=== PATIENT | male | born 1950 | race Caucasian/White ===

== ENCOUNTER 2016-10-03 16:45 | Inpatient (IN) | payer MEDICARE ==
[2016-10-03] MEDS ORDERED: PANTOPRAZOLE 40 MG/10 ML VIAL IVP STA (17:18)
[2016-10-03] MEDS ORDERED: IOHEXOL 350 MG/ML 25 ML BOTTLE (ORAL USE) PO PRN (17:18)
[2016-10-03] MEDS ORDERED: RX INFO: IV CONTRAST WAS GIVEN 1 EACH MISC MISCELLANE PRN (17:18)
[2016-10-03] MEDS ORDERED: SODIUM CHLORIDE 0.9% 1,000 ML IV STA (17:18)
[2016-10-03] MEDS ORDERED: HYDROmorphone 1 MG/ML 1 ML SYRINGE IVP STA (17:18)
--- NOTE | 2016-10-03 17:22 | ED ---
General Adult HPI - General Chief complaint: Abdominal Pain Stated complaint: Abdominal pain Time Seen by Provider: 10/03/16 17:04 Source: patient, RN notes reviewed Mode of arrival: EMS Limitations: no limitations - History of Present Illness Initial comments: Patient is a pleasant 65-year-old male presenting to the emergency Department with abdominal discomfort. Onset was last night after eating pizza. Patient had a friend who ate pizza with similar problems. Patient did have a few episodes of diarrhea. Patient had some nausea however that is improved. No vomiting. Patient originally stated he had some chest discomfort however admits his discomfort is all in the abdominal/epigastric region during history and physical. No back pain. Patient does have lap band that has been present for several years. - Related Data Home Medications Medication Instructions Recorded Confirmed Acetaminophen [Tylenol] 650 mg PO Q4H PRN 10/03/16 10/03/16 Bismuth Subsalicylate 15 mg PO DAILY PRN 10/03/16 10/03/16 [Pepto-Bismol] Ibuprofen [Advil] 400 mg PO Q8HR PRN 10/03/16 10/03/16 Allergies Allergy/AdvReac Type Severity Reaction Status Date / Time No Known Allergies Allergy Verified 10/03/16 17:57 Review of Systems ROS Statement: Those systems with pertinent positive or pertinent negative responses have been documented in the HPI. ROS Other: All systems not noted in ROS Statement are negative. Constitutional: Denies: fever Eyes: Denies: eye pain ENT: Denies: ear pain Respiratory: Denies: cough Cardiovascular: Denies: chest pain Endocrine: Denies: fatigue Gastrointestinal: Reports: abdominal pain, nausea, diarrhea Genitourinary: Denies: urgency Musculoskeletal: Denies: back pain Skin: Denies: rash Past Medical History Past Medical History: Diabetes Mellitus, Hypertension History of Any Multi-Drug Resistant Organisms: None Reported Past Surgical History: Bariatric Surgery Additional Past Surgical History / Comment(s): lap band Past Psychological History: No Psychological Hx Reported Smoking Status: Never smoker Past Alcohol Use History: None Reported Past Drug Use History: None Reported General Exam Limitations: no limitations General appearance: alert, in no apparent distress, obese Head exam: Present: atraumatic Eye exam: Present: normal appearance, PERRL ENT exam: Present: normal oropharynx Neck exam: Present: normal inspection Respiratory exam: Present: normal lung sounds bilaterally. Absent: chest wall tenderness Cardiovascular Exam: Present: regular rate, normal rhythm Expanded Peripheral pulses: 2+: Posterior Tibialis (R), Posterior Tibialis (L) GI/Abdominal exam: Present: soft, tenderness (Mild epigastric tenderness to palpation), normal bowel sounds. Absent: distended, guarding, rebound, rigid Extremities exam: Present: pedal edema (+1 bilateral). Absent: calf tenderness Neurological exam: Present: alert Psychiatric exam: Present: normal affect, normal mood Skin exam: Present: normal color Course Vital Signs 10/03/16 10/03/16 10/03/16 17:05 17:45 18:23 Temperature 99.0 F Pulse Rate 97 72 86 Respiratory 20 18 18 Rate Blood Pressure 198/84 162/73 179/73 O2 Sat by Pulse 95 95 95 Oximetry 10/03/16 19:18 Temperature 98.7 F Pulse Rate 84 Respiratory 18 Rate Blood Pressure 175/78 O2 Sat by Pulse 95 Oximetry EKG Findings - EKG Comments: EKG Findings:: Sinus rhythm at 88. First-degree AV block NH of 218. QRS 86. QT 344. QTC 416. Left axis. Normal QRS. Normal ST-T. Medical Decision Making - Medical Decision Making Patient reevaluated and resting comfortably in bed. Patient and family updated on results and plan. Patient denies alcohol use. Case discussed with Dr. Cooper , who will admit for Dr. Perez. Consult for Dr. Michael. Computed tomography scan has been ordered. - Lab Data Result diagrams: 10/03/16 17:44 10/03/16 17:44 Lab Results 10/03/16 10/03/16 10/03/16 Range/Units 17:44 17:44 17:44 WBC 12.3 H (3.8-10.6) k/uL RBC 5.07 (4.30-5.90) m/uL Hgb 16.0 (13.0-17.5) gm/dL Hct 45.9 (39.0-53.0) % MCV 90.5 (80.0-100.0) fL MCH 31.6 (25.0-35.0) pg MCHC 34.9 (31.0-37.0) g/dL RDW 12.8 (11.5-15.5) % Plt Count 181 (150-450) k/uL Neutrophils % 78 % Lymphocytes % 13 % Monocytes % 5 % Eosinophils % 2 % Basophils % 0 % Neutrophils # 9.6 H (1.3-7.7) k/uL Lymphocytes # 1.6 (1.0-4.8) k/uL Monocytes # 0.6 (0-1.0) k/uL Eosinophils # 0.3 (0-0.7) k/uL Basophils # 0.0 (0-0.2) k/uL PT (9.0-12.0) sec INR (<1.1) APTT (22.0-30.0) sec Sodium 136 L (137-145) mmol/L Potassium 4.3 (3.5-5.1) mmol/L Chloride 101 (98-107) mmol/L Carbon Dioxide 23 (22-30) mmol/L Anion Gap 12 mmol/L BUN 12 (9-20) mg/dL Creatinine 0.91 (0.66-1.25) mg/dL Est GFR (MDRD) Af Amer >60 (>60 ml/min/1.73 sqM) Est GFR (MDRD) Non-Af >60 (>60 ml/min/1.73 sqM) Glucose 172 H (74-99) mg/dL Calcium 9.7 (8.4-10.2) mg/dL Total Bilirubin 0.8 (0.2-1.3) mg/dL AST 29 (17-59) U/L ALT 31 (21-72) U/L Alkaline Phosphatase 83 (38-126) U/L Total Creatine Kinase 266 H (55-170) U/L CK-MB (CK-2) 1.0 (0.0-2.4) ng/mL CK-MB (CK-2) Rel Index 0.4 Troponin I <0.012 (0.000-0.034) ng/mL Total Protein 7.5 (6.3-8.2) g/dL Albumin 4.5 (3.5-5.0) g/dL Amylase 207 H (30-110) U/L Lipase 4610 H (23-300) U/L Urine Color Urine Appearance (Clear) Urine pH (5.0-8.0) Ur Specific [place] (1.001-1.035) Urine Protein (Negative) Urine Glucose (UA) (Negative) Urine Ketones (Negative) Urine Blood (Negative) Urine Nitrite (Negative) Urine Bilirubin (Negative) Urine Urobilinogen (<2.0) mg/dL Ur Leukocyte Esterase (Negative) Urine RBC (0-5) /hpf Urine WBC (0-5) /hpf Urine Bacteria (None) /hpf Urine Mucus (None) /hpf 10/03/16 10/03/16 Range/Units 17:44 17:44 WBC (3.8-10.6) k/uL RBC (4.30-5.90) m/uL Hgb (13.0-17.5) gm/dL Hct (39.0-53.0) % MCV (80.0-100.0) fL MCH (25.0-35.0) pg MCHC (31.0-37.0) g/dL RDW (11.5-15.5) % Plt Count (150-450) k/uL Neutrophils % % Lymphocytes % % Monocytes % % Eosinophils % % Basophils % % Neutrophils # (1.3-7.7) k/uL Lymphocytes # (1.0-4.8) k/uL Monocytes # (0-1.0) k/uL Eosinophils # (0-0.7) k/uL Basophils # (0-0.2) k/uL PT 10.6 (9.0-12.0) sec INR 1.1 (<1.1) APTT 23.8 (22.0-30.0) sec Sodium (137-145) mmol/L Potassium (3.5-5.1) mmol/L Chloride (98-107) mmol/L Carbon Dioxide (22-30) mmol/L Anion Gap mmol/L BUN (9-20) mg/dL Creatinine (0.66-1.25) mg/dL Est GFR (MDRD) Af Amer (>60 ml/min/1.73 sqM) Est GFR (MDRD) Non-Af (>60 ml/min/1.73 sqM) Glucose (74-99) mg/dL Calcium (8.4-10.2) mg/dL Total Bilirubin (0.2-1.3) mg/dL AST (17-59) U/L ALT (21-72) U/L Alkaline Phosphatase (38-126) U/L Total Creatine Kinase (55-170) U/L CK-MB (CK-2) (0.0-2.4) ng/mL CK-MB (CK-2) Rel Index Troponin I (0.000-0.034) ng/mL Total Protein (6.3-8.2) g/dL Albumin (3.5-5.0) g/dL Amylase (30-110) U/L Lipase (23-300) U/L Urine Color Light Yellow Urine Appearance Clear (Clear) Urine pH 5.0 (5.0-8.0) Ur Specific [place] 1.010 (1.001-1.035) Urine Protein Trace H (Negative) Urine Glucose (UA) 2+ H (Negative) Urine Ketones Negative (Negative) Urine Blood Trace H (Negative) Urine Nitrite Negative (Negative) Urine Bilirubin Negative (Negative) Urine Urobilinogen <2.0 (<2.0) mg/dL Ur Leukocyte Esterase Negative (Negative) Urine RBC <1 (0-5) /hpf Urine WBC <1 (0-5) /hpf Urine Bacteria Rare H (None) /hpf Urine Mucus Rare H (None) /hpf Disposition Clinical Impression: Acute pancreatitis Disposition: ADMITTED IP TO THIS [facility] Condition: Serious Referrals: Gilbert Perez MD [Primary Care Provider] - 1-2 days Time of Disposition: 19:28
[2016-10-03 18:06] LABS: Basophils % (A) 0 %; CH 32.2; CHCM 35.8; Eosinophils # (A) 0.3 k/uL (0-0.7); Eosinophils % (A) 2 %; HCT 45.9 % (39.0-53.0); HDW 2.93; Luc # (Auto) 0.17; Luc % (Auto) 1; Lymphocytes # (A) 1.6 k/uL (1.0-4.8); Lymphocytes % (A) 13 %; MCH 31.6 pg (25.0-35.0); MCHC 34.9 g/dL (31.0-37.0); MCV 90.5 fL (80.0-100.0); Mean Platelet Volume 7.1; Monocytes # (A) 0.6 k/uL (0-1.0); Monocytes % (A) 5 %; Neutrophils # (A) 9.6 k/uL (1.3-7.7); Neutrophils % (A) 78 %; RBC 5.07 m/uL (4.30-5.90); RDW 12.8 % (11.5-15.5); WBC 12.3 k/uL (3.8-10.6); WBC (Perox) 11.36
[2016-10-03 18:14] LABS: INR 1.1 (<1.1); Partial Thromboplastin Time 23.8 sec (22.0-30.0); Prothrombin Time 10.6 sec (9.0-12.0)
[2016-10-03 18:16] LABS: ALT 31 U/L (21-72); AST 29 U/L (17-59); Alkaline Phosphatase 83 U/L (38-126); Amylase 207 U/L (30-110); Anion Gap 12 mmol/L; Blood Urea Nitrogen 12 mg/dL (9-20); Calcium 9.7 mg/dL (8.4-10.2); Carbon Dioxide 23 mmol/L (22-30); Chloride 101 mmol/L (98-107); Glucose 172 mg/dL (74-99); Non-African American GFR(MDRD) >60 (>60 ml/min/1.73 sqM); Potassium 4.3 mmol/L (3.5-5.1); Sodium 136 mmol/L (137-145); Total Bilirubin 0.8 mg/dL (0.2-1.3); Total Protein 7.5 g/dL (6.3-8.2)
[2016-10-03 18:20] LABS: Appearance,Urine Clear (Clear); Bacteria,Urine Rare /hpf; Bilirubin,Urine Negative (Negative); Glucose,Urine (UA) 2+ (Negative); Ketones,Urine Negative (Negative); Leukocyte Esterase,Urine Negative (Negative); Mucus,Urine Rare /hpf; Nitrite,Urine Negative (Negative); Particle Count 744; Protein,Urine Trace (Negative); RBC,Urine <1 /hpf (0-5); UA Billing (MACRO vs. MICRO) MICRO; Urobilinogen,Urine <2.0 mg/dL (<2.0); WBC,Urine <1 /hpf (0-5)
[2016-10-03 18:31] LABS: Creatine Kinase 266 U/L (55-170)
[2016-10-03 18:43] LABS: Troponin I <0.012 ng/mL (0.000-0.034)
[2016-10-03] MEDS ORDERED: NALOXONE 0.4 MG/ML 1 ML VIAL IV PRN (19:28)
[2016-10-03] MEDS ORDERED: HYDROmorphone 1 MG/ML 1 ML SYRINGE IV PRN (19:28)
--- NOTE | 2016-10-03 19:58 | CT ---
EXAMINATION TYPE: CT abdomen pelvis w con DATE OF EXAM: 10/03/2016 COMPARISON: NONE HISTORY: Upper abdominal pain. CT DLP: 3725.8 mGycm Automated exposure control for dose reduction was used. TECHNIQUE: Helical acquisition of images was performed from the lung bases through the pelvis. CONTRAST: Performed without Oral Contrast and with IV Contrast, patient injected with 100 mL of Omnipaque 300. FINDINGS: The lung bases are clear. There is no pleural effusion. There is a calcified splenic granulomata. Ginna er shows no focal defect. There is a gastric sling around the fundus of the stomach. There is calcifi cation in the gallbladder. Gallbladder wall is probably also calcified. Bile ducts are not dilated. T here is no sign of a pancreatic mass. There is no adrenal mass. Kidneys show satisfactory contrast opacification. There is a 1 cm calculus at the interpolar right kidney. There is a 3.5 cm cyst at the right renal pelvis. There is no hydrone phrosis. Ureters are not dilated. Bladder distends smoothly. I see no intestinal wall thickening. The re are no dilated loops. Appendix appears normal. There is no ascites. There are spondylotic changes throughout the lumbar spine. IMPRESSION: THERE IS A LARGE CALCIFIED GALLSTONE. THERE IS GALLBLADDER WALL CALCIFICATION AND PROBABLE WALL THICK ENING THAT IS SUGGESTIVE OF ACUTE AND CHRONIC CHOLECYSTITIS. THIS IS ASSOCIATED WITH DIABETES. FOLLOW -UP IS RECOMMENDED. RIGHT RENAL PARAPELVIC CYST. NORMAL APPENDIX. BARIATRIC SURGERY.
[2016-10-03] MEDS: ONDANSETRON 4 MG/2 ML VIAL IVP PRN (20:29)
[2016-10-03 20:44] LABS: Glucose,Whole Blood 167 mg/dL (75-99)
[2016-10-03] MEDS ORDERED: MORPHINE SULFATE 2 MG/ML SYRINGE IVP PRN (22:29)
[2016-10-03] MEDS ORDERED: ENALAPRILAT 1.25 MG/ML 1 ML VIAL IVP PRN (22:32)
[2016-10-03] MEDS ORDERED: CALCIUM CARBONATE 500 MG CHEWABLE PO PRN (22:37)
[2016-10-03 22:43] VITALS: PULSE 87; RESP 20
[2016-10-03] MEDS: SODIUM CHLORIDE 0.9% 1,000 ML IV SCH (23:48)
[2016-10-04] MEDS: ONDANSETRON 4 MG/2 ML VIAL IVP PRN (02:57)
[2016-10-04 07:41] LABS: Glucose,Whole Blood 154 mg/dL (75-99)
[2016-10-04 08:09] VITALS: BP 149/70; TEMP 98
[2016-10-04 08:11] LABS: Basophils % (A) 0 %; CH 32.3; CHCM 35.3; Eosinophils # (A) 0.2 k/uL (0-0.7); Eosinophils % (A) 2 %; HCT 44.8 % (39.0-53.0); HDW 2.88; Luc # (Auto) 0.21; Luc % (Auto) 2; Lymphocytes # (A) 1.7 k/uL (1.0-4.8); Lymphocytes % (A) 17 %; MCH 30.7 pg (25.0-35.0); MCHC 33.4 g/dL (31.0-37.0); Mean Platelet Volume 7.1; Monocytes # (A) 0.5 k/uL (0-1.0); Monocytes % (A) 5 %; Neutrophils # (A) 7.4 k/uL (1.3-7.7); Neutrophils % (A) 74 %; RBC 4.87 m/uL (4.30-5.90); RDW 12.7 % (11.5-15.5); WBC 10.1 k/uL (3.8-10.6); WBC (Perox) 10.23
[2016-10-04 08:27] LABS: ALT 25 U/L (21-72); AST 23 U/L (17-59); Alkaline Phosphatase 72 U/L (38-126); Amylase 60 U/L (30-110); Anion Gap 11 mmol/L; Blood Urea Nitrogen 11 mg/dL (9-20); Calcium 8.8 mg/dL (8.4-10.2); Carbon Dioxide 23 mmol/L (22-30); Chloride 105 mmol/L (98-107); Glucose 146 mg/dL (74-99); Non-African American GFR(MDRD) >60 (>60 ml/min/1.73 sqM); Potassium 4.1 mmol/L (3.5-5.1); Sodium 139 mmol/L (137-145); Total Bilirubin 1.7 mg/dL (0.2-1.3); Total Protein 6.8 g/dL (6.3-8.2)
[2016-10-04] MEDS: SODIUM CHLORIDE 0.9% 1,000 ML IV SCH ×2 (08:51→12:21)
[2016-10-04] MEDS ORDERED: ENOXAPARIN 40 MG/0.4 ML SYRINGE SQ SCH (09:00)
[2016-10-04] MEDS ORDERED: PANTOPRAZOLE 40 MG/10 ML VIAL IV SCH (09:00)
[2016-10-04 11:34] LABS: Glucose,Whole Blood 133 mg/dL (75-99)
--- NOTE | 2016-10-04 12:34 | P.HPIM ---
History of Present Illness H&P Date: 10/04/16 Chief Complaint: Abdominal pain HISTORY AND PHYSICAL AND DISCHARGE SUMMARY: Patient is a 65-year-old male patient of Dr. Perez with a past medical history diabetes mellitus type 2, hypertension, obstructive sleep apnea status post surgery, morbid obesity status post lap banding, diabetes mellitus type 2 currently on no medication, hypertension currently on no medication, patient was brought into the emergency department at the [facility] after he had severe abdominal pain associated with increased nausea and vomiting patient stated that he had pizza few hours prior to that when he suddenly developed to have a significant epigastric pain elicited with nausea and vomiting and the patient was brought into the ER at [facility] and he had a computed tomography scan of the abdomen and pelvis that showed calcified gallstones with the thick gallbladder wall suggestive of chronic cholecystitis, patient underwent was normal however amylase and lipase were quite elevated and the patient was admitted to the hospital for acute pancreatitis thought to be due to possible CBD on versus fatty meal. Patient was started on IV fluid resuscitation as well as Zofran and pain management general surgery consultation was obtained from Dr. frank. If patient can tolerate his clear liquid diet with no nausea or vomiting we'll discontinue IV fluid and we will discharge patient home as to follow-up with Dr. garcía as an outpatient for possible laparoscopic cholecystectomy. Review of Systems All systems: negative Constitutional: Denies anorexia, Denies chills, Denies fatigue, Denies fever, Denies malaise, Denies poor appetite, Denies sweats, Denies weakness, Denies weight loss Eyes: denies blurred vision, denies pain Ears, nose, mouth and throat: Denies dental pain, Denies headache, Denies mouth pain, Denies sore throat Cardiovascular: Denies chest pain, Denies decreased exercise tolerance, Denies dyspnea on exertion, Denies leg edema, Denies lightheadedness, Denies shortness of breath, Denies syncope Respiratory: Reports sleep apnea, Denies cough, Denies cough with sputum, Denies dyspnea, Denies excessive sputum, Denies hemoptysis, Denies home oxygen, Denies wheezing Gastrointestinal: Reports abdominal pain, Reports bloating, Reports change in bowel habits, Reports dyspepsia, Reports early satiety, Reports excessive gas, Reports heartburn, Reports indigestion, Reports nausea, Reports vomiting, Denies diarrhea Genitourinary: Denies dysuria, Denies hematuria, Denies urinary frequency Musculoskeletal: Denies myalgias Musculoskeletal: absent: ankle pain, ankle stiffness, ankle swelling, elbow pain , elbow stiffness, elbow swelling, foot pain, foot stiffness, foot swelling, hand pain, hand stiffness, hand swelling, hip pain, hip stiffness, hip swelling , knee pain, knee stiffness, knee swelling, shoulder pain, shoulder stiffness, shoulder swelling, wrist pain, wrist stiffness, wrist swelling Integumentary: Denies pruritus, Denies rash Neurological: Denies numbness, Denies weakness Psychiatric: Denies anxiety, Denies depression Endocrine: Denies fatigue, Denies weight change Past Medical History Past Medical History: Diabetes Mellitus, Hyperlipidemia, Hypertension, Osteoarthritis (OA), Prostate Disorder, Sleep Apnea/CPAP/BIPAP Additional Past Medical History / Comment(s): leg cramps History of Any Multi-Drug Resistant Organisms: None Reported Past Surgical History: Bariatric Surgery Additional Past Surgical History / Comment(s): lap band, sleep apnea surgery UPPP Past Psychological History: No Psychological Hx Reported Smoking Status: Never smoker Past Alcohol Use History: None Reported Past Drug Use History: None Reported - Past Family History Father Additional Family Medical History / Comment(s): Father dies at age 89 with CVA. Mother Additional Family Medical History / Comment(s): Mother at age 86 from Alzheimer dementia. Maternal grandfather had gallbladder problems. Brother(s) Additional Family Medical History / Comment(s): Patient has one brother with no major medical problems. Patient does not have any sisters. Patient does not have any children. Medications and Allergies Home Medications Medication Instructions Recorded Confirmed Type Acetaminophen [Tylenol] 650 mg PO Q4H PRN 10/03/16 10/03/16 History Bismuth Subsalicylate 15 mg PO DAILY PRN 10/03/16 10/03/16 History [Pepto-Bismol] Ibuprofen [Advil] 400 mg PO Q8HR PRN 10/03/16 10/03/16 History Allergies Allergy/AdvReac Type Severity Reaction Status Date / Time No Known Allergies Allergy Verified 10/03/16 17:57 Physical Exam Vitals: Vital Signs Temp Pulse Pulse Resp BP BP Pulse Ox 10/04/16 07:29 87 20 10/04/16 07:00 98 F 74 20 149/70 96 06/09/17 00:00 87 20 10/03/16 22:42 98.7 F 87 20 148/70 92 L 10/03/16 20:04 98.7 F 84 18 178/80 96 10/03/16 19:18 98.7 F 84 18 175/78 95 10/03/16 18:23 86 18 179/73 95 10/03/16 17:45 72 18 162/73 95 10/03/16 17:05 99.0 F 97 20 198/84 95 Intake and Output 10/03/16 10/04/16 10/04/16 22:59 06:59 14:59 Intake Total 675 240 Output Total 600 Balance 75 240 Intake: Intake, IV Titration 675 Amount Sodium Chloride 0.9% 1, 675 000 ml @ 75 mls/hr IV . [id number] [facility] Rx#:[id number] Oral 240 Output: Urine 600 Other: Voiding Method Urinal Urinal # Voids 3 1 Weight 181.437 kg - Constitutional General appearance: mild distress, morbidly obese - EENT Eyes: anicteric sclerae, EOMI, PERRLA, no ptosis, no scleral icterus, normal appearance ENT: hearing grossly normal, NA/AT, normal oropharynx, no thrush, no tonsillar exudates Ears: bilateral: normal - Neck Neck: no lymphadenopathy, normal ROM, no rigidity, no stridor, no thyromegaly Carotids: bilateral: upstroke delayed Thyroid: bilateral: normal size - Respiratory Respiratory: bilateral: diminished, negative: dullness, rales, rhonchi, wheezing , prolonged expiration, prolonged inspiration - Cardiovascular Rhythm: regular Heart sounds: normal: S1, S2 Abnormal Heart Sounds: no systolic murmur, no S3 Gallop, no S4 Gallop, no click - Gastrointestinal General gastrointestinal: normal bowel sounds, soft, no splenomegaly, tenderness , no umbilical hernia, no ventral hernia Localized gastrointestinal: tender: epigastric periumbilical - Integumentary Integumentary: normal, normal turgor - Neurologic Neurologic: CNII-XII intact - Musculoskeletal Musculoskeletal: strength equal bilaterally - Psychiatric Psychiatric: A&O x's 3, appropriate affect, intact judgment & insight Results CBC & Chem 7: 10/04/16 07:44 10/04/16 07:44 Labs: Abnormal Lab Results - Last 24 Hours (Table) 10/03/16 10/03/16 10/03/16 Range/Units 17:44 17:44 17:44 WBC 12.3 H (3.8-10.6) k/uL Neutrophils # 9.6 H (1.3-7.7) k/uL Sodium 136 L (137-145) mmol/L Glucose 172 H (74-99) mg/dL POC Glucose (mg/dL) (75-99) mg/dL Total Bilirubin (0.2-1.3) mg/dL Total Creatine Kinase 266 H (55-170) U/L Amylase 207 H (30-110) U/L Lipase 4610 H (23-300) U/L Urine Protein (Negative) Urine Glucose (UA) (Negative) Urine Blood (Negative) Urine Bacteria (None) /hpf Urine Mucus (None) /hpf 10/03/16 10/03/16 10/04/16 Range/Units 17:44 20:42 07:38 WBC (3.8-10.6) k/uL Neutrophils # (1.3-7.7) k/uL Sodium (137-145) mmol/L Glucose (74-99) mg/dL POC Glucose (mg/dL) 167 H 154 H (75-99) mg/dL Total Bilirubin (0.2-1.3) mg/dL Total Creatine Kinase (55-170) U/L Amylase (30-110) U/L Lipase (23-300) U/L Urine Protein Trace H (Negative) Urine Glucose (UA) 2+ H (Negative) Urine Blood Trace H (Negative) Urine Bacteria Rare H (None) /hpf Urine Mucus Rare H (None) /hpf 10/04/16 Range/Units 07:44 WBC (3.8-10.6) k/uL Neutrophils # (1.3-7.7) k/uL Sodium (137-145) mmol/L Glucose 146 H (74-99) mg/dL POC Glucose (mg/dL) (75-99) mg/dL Total Bilirubin 1.7 H (0.2-1.3) mg/dL Total Creatine Kinase (55-170) U/L Amylase (30-110) U/L Lipase 565 H (23-300) U/L Urine Protein (Negative) Urine Glucose (UA) (Negative) Urine Blood (Negative) Urine Bacteria (None) /hpf Urine Mucus (None) /hpf Thrombosis Risk Factor Assmnt - DVT/VTE Prophylaxis DVT/VTE Prophylaxis: Pharmacologic Prophylaxis ordered, Mechanical Prophylaxis ordered - Choose All That Apply Each Factor Represents 1 point: Obesity (BMI >25) Other Risk Factors: Yes Each Risk Factor Represents 2 Points: Age 61-74 years Thrombosis Risk Factor Assessment Total Risk Factor Score: 3 Thrombosis Risk Factor Assessment Level: Moderate Risk Assessment and Plan Plan: Assessment and plan: 1. Acute pancreatitis secondary to gallstones with acute on chronic cholecystitis. We'll start the patient on clear liquid diet, his amylase and lipase going back down, continue Zofran 4 mg IV push every 4 hours as needed, continue IV fluid resuscitation, continue patient on morphine 2 mg IV push every 4 hours as needed for pain control. General surgery consultation for the patient to have laparoscopic cholecystectomy as an outpatient. 2. Hypertension. Low-salt diet, patient was taken off his lisinopril and he does not want to go back on it. 3. Diabetes mellitus type 2. Continue consistent carb 100 diet 1800 with exercise and weight loss, patient is not taking his metformin. 4. Obesity with obstructive sleep apnea. Continue CPAP, weight loss. 5. Morbid obesity status post lap band surgery. Stable at this time. 6. Leg cramps. Check vitamin D level as an outpatient. 7. DVT prophylaxis. Continue Lovenox 40 mg subcutaneously every 24 hours. 8. GI prophylaxis. Continue patient on Protonix 40 mg IV push every 24 hours. 9. If patient can tolerate his clear liquid diet well he can be discharged home and follow-up with Dr. garcía as an outpatient.
== END 2016-10-04 15:20 | disposition home or self-care (01) | DRG 439 ==
LOC: EC 16:45 → 5MS5E 19:28
PROVIDERS: ADMIT Internal Medicine; ATTEND Internal Medicine
DX: K85.10 Biliary acute pancreatitis without necrosis or infection (principal); K80.12 Calculus of gallbladder with acute and chronic cholecystitis without obstruction; Z68.43 Body mass index [BMI] 50.0-59.9, adult; I10 Essential (primary) hypertension; E66.01 Morbid (severe) obesity due to excess calories; E78.5 Hyperlipidemia, unspecified; G47.33 Obstructive sleep apnea (adult) (pediatric); E11.9 Type 2 diabetes mellitus without complications; M19.91 Primary osteoarthritis, unspecified site; N42.9 Disorder of prostate, unspecified; Z98.84 Bariatric surgery status; Z79.899 Other long term (current) drug therapy
CPT/HCPCS: 36415; 74177; 80053; 81001; 82150; 82550; 82553; 83690; 84484; 85025; 85610; 85730; 93005; 96361; 96374; 99285

== ENCOUNTER → 2016-10-14 | Outpatient (CLI) | payer MEDICARE ==
[2016-10-14 10:42] LABS: CH 32.1; CHCM 34.7; HCT 45.6 % (39.0-53.0); HDW 2.94; HGB 15.1 gm/dL (13.0-17.5); MCH 30.8 pg (25.0-35.0); MCV 93.1 fL (80.0-100.0); Mean Platelet Volume 7.1; RDW 12.7 % (11.5-15.5); WBC 5.4 k/uL (3.8-10.6)
[2016-10-14 10:58] LABS: ALT 32 U/L (21-72); AST 27 U/L (17-59); Alkaline Phosphatase 72 U/L (38-126); Amylase 34 U/L (30-110); Anion Gap 11 mmol/L; Blood Urea Nitrogen 15 mg/dL (9-20); Calcium 9.1 mg/dL (8.4-10.2); Carbon Dioxide 26 mmol/L (22-30); Chloride 104 mmol/L (98-107); Glucose 220 mg/dL (74-99); Non-African American GFR(MDRD) >60 (>60 ml/min/1.73 sqM); Potassium 4.1 mmol/L (3.5-5.1); Sodium 141 mmol/L (137-145); Total Bilirubin 0.9 mg/dL (0.2-1.3); Total Protein 6.9 g/dL (6.3-8.2)
== END | disposition home or self-care (01) ==
LOC: LABWHC1 10:13
PROVIDERS: ATTEND Surgery
DX: K80.00 Calculus of gallbladder with acute cholecystitis without obstruction (principal)
CPT/HCPCS: 36415; 80053; 82150; 85027

== ENCOUNTER 2016-10-23 07:48 | Observation (INO) | payer MEDICARE ==
--- NOTE | 2016-10-21 08:10 | HP ---
DATE OF ADMISSION: CHIEF COMPLAINT: Gallstone pancreatitis. HISTORY OF PRESENT ILLNESS: Patient is a 65-year-old male who was recently hospitalized with gallstone pancreatitis. CAT scan shows a very large gallstone possibly even a calcified gallbladder wall. The patient had pancreatitis as well at that time. The patient is known to us from prior lap band placement. He has had no recent complaints of pain after his discharge from the hospital. The patient denies any recent change in the color of his skin, urine or stool. Past medical history is morbid obesity, diabetes, hypertension. PAST SURGICAL HISTORY: Lap band. MEDICATIONS: See list. ALLERGIES: None. PHYSICAL EXAM: GENERAL: Well-developed, well-nourished male in no distress. HEENT: Normocephalic. Sclerae anicteric. CHEST: No deformities. ABDOMEN: Soft, obese, nontender. IMPRESSION: A 65-year-old male with gallstone pancreatitis. PLAN: Will proceed with laparoscopic cholecystectomy, possible open cholecystectomy, on 10/23. The risks of bleeding, infection, biloma formation, common bile duct injury, retained CBD stone, trocar-related injury and conversion to an open procedure. The patient understands and wishes to proceed.
[2016-10-21 12:25] VITALS: BMI 52.9
[~2016-10-23 07:48] MED LIST: DEXAMETHASONE SOD PHOSPHATE 10 MG/ML 1 ML VIAL IV ONE; HEPARIN SODIUM,PORCINE 5,000 UNIT/ML 1 ML VIAL SQ ONE; LACTATED RINGERS 1,000 ML IV SCH; MIDAZOLAM 2 MG/2 ML VIAL IV PRN; ONDANSETRON 4 MG/2 ML VIAL IVP ONE; SCOPOLAMINE 1.5MG/72HR PATCH TRANSDERM ONE; ceFAZolin 3 GM in SODIUM CHLORIDE 0.9% 100 ML IVPB ONE
[2016-10-23 08:33] LABS: Glucose,Whole Blood 126 mg/dL (75-99)
[2016-10-23] MEDS ORDERED: LIDOCAINE 1% INJ 10MG/ML (20 ML MDV) ONE (09:18)
[2016-10-23] MEDS ORDERED: SUCCINYLCHOLINE CHLORIDE VIAL 200 MG/10 ML VIAL IV ONE (09:18)
[2016-10-23] MEDS ORDERED: NEOSTIGMINE 1 MG/ML 10 ML VIAL ONE (09:18)
[2016-10-23] MEDS ORDERED: ROCURONIUM BROMIDE 10 MG/ML 10 ML VIAL IV ONE (09:18)
[2016-10-23] MEDS ORDERED: PHENYLEPHRINE-0.9% NACL SYG 1 MG/10 ML SYRINGE ONE (09:18)
[2016-10-23] MEDS ORDERED: fentaNYL (PF) 50 MCG/ML 2 ML AMP ONE (09:18)
[2016-10-23] MEDS ORDERED: GLYCOPYRROLATE 0.2 MG/ML 2 ML VIAL ONE (09:18)
[2016-10-23] MEDS ORDERED: MIDAZOLAM 2 MG/2 ML VIAL ONE (09:18)
[2016-10-23] MEDS ORDERED: PROPOFOL 10 MG/ML 20 ML VIAL IV ONE (09:18)
[2016-10-23] MEDS ORDERED: BUPIVACAIN-EPI 0.5%-1:200,000 30 ML VIAL SQ ONE (09:38)
[2016-10-23] MEDS ORDERED: LACTATED RINGERS 1,000 ML IV ONE ×3 (09:57→12:15)
[2016-10-23] MEDS ORDERED: traMADol 50 MG TAB PO PRN (11:42)
[2016-10-23] MEDS ORDERED: NALOXONE 0.4 MG/ML 1 ML VIAL IV PRN (11:42)
--- NOTE | 2016-10-23 11:50 | P.OP ---
Date of Procedure: 10/23/16 Preoperative Diagnosis: Postoperative Diagnosis: Procedure(s) Performed: PREOPERATIVE DIAGNOSIS: Chronic cholecystitis with gallstone pancreatitis POSTOPERATIVE DIAGNOSIS: Porcelain gallbladder, as above PROCEDURE: Laparoscopic cholecystectomy SURGEON: Sammy EBL: Minimal see anesthesia record ANESTHESIA: Gen. COMPLICATIONS: None OPERATIVE PROCEDURE: The patient was brought and placed on the operating room table in the supine position. The patient was placed under general anesthesia at that time. The abdomen was prepped and draped in the usual sterile fashion. A small horizontal supraumbilical incision was made. The fascia was grasped with the José Miguel forceps. The fascia was retracted anteriorly. The Veress needle was advanced into the peritoneal cavity. The saline drop test was normal. Insufflation took place up to 15 mmHg. A 5 mm optical trocar was advanced and the peritoneal cavity. 2 additional 5 mm trochars were placed in the right upper quadrant under direct visualization. A 10 mm trocar was advanced into the epigastric incision site. This was later switched to a 12 mm trocar. The goal or could not be visualized because of the inflammatory changes adhering the gallbladder to the surrounding adipose tissue. Using a combination of blunt dissection electrocautery and the LigaSure device I was able to finally visualize the dome of the gallbladder. The gallbladder was calcified. With some difficulty I was able to grasp the fundus using a toothed grasper and retract the gallbladder cephalad. The bulldog was used to grab the mid aspect of the gallbladder and retract anteriorly and cephalad as well. Careful dissection continued using a combination of the LigaSure device and blunt dissection. As we approached the infundibulum patient's cystic artery was visualized dissected and clipped using 12 mm clips. The patient's infundibulum took on a more normal shape and consistency. This was no longer calcified in that region. The patient's cystic duct appeared quite wide which would be consistent with the recent admission for gallstone pancreatitis. It was difficult to dissect anymore proximally into the kimberly hepatis because of the ongoing inflammatory changes. I divided the infundibulum/cystic duct once I was confident that we were not tenting the hepatic duct. This was divided after a 2-0 Ethibond stitch was used to ligate the infundibulum/cystic duct and this was tied down using a tie knot device. An additional 12 mm clip was also placed on the patient's side as well. The cystic duct/infundibulum was divided then on the specimen side. Additional small vessel was clipped. The gallbladder was then able to be removed from the liver bed using a combination of electrocautery and blunt dissection. Thankfully there was very little bleeding along the liver bed and this was easily controlled using electrocautery. I placed a drain in the gallbladder fossa and this was brought out through the most lateral 5 mm trocar site and sutured using 2-0 silk sutures. The gallbladder was removed from the epigastric trocar site with an Endo Catch bag. In order to remove this the incision and fascia were both lengthened fairly significantly. The fascia was then closed using a running 0 Vicryl stitch. The remaining 3 sites were closed using a 4-0 Monocryl stitch. At the end of this procedure the sponge and needle counts were correct. DISPOSITION: Stable to the recovery room Implants: Indications for Procedure: Operative Findings: Description of Procedure:
[2016-10-23] MEDS: MORPHINE SULFATE 10 MG/ML SYRINGE IVP ONE ×4 (11:55→12:24)
[2016-10-23] MEDS ORDERED: ENALAPRILAT 1.25 MG/ML 1 ML VIAL IVP ONE (12:04)
[2016-10-23 12:14] LABS: Glucose,Whole Blood 180 mg/dL (75-99)
[2016-10-23] MEDS: ONDANSETRON 4 MG/2 ML VIAL IVP PRN (14:03)
[2016-10-23] MEDS ORDERED: ENALAPRILAT 1.25 MG/ML 1 ML VIAL IVP PRN (14:36)
[2016-10-23] MEDS ORDERED: SCOPOLAMINE 1.5MG/72HR PATCH TRANSDERM STA (14:38)
[2016-10-23] MEDS: SODIUM CHLORIDE 0.45% 1,000 ML IV SCH (14:48)
[2016-10-23] MEDS: MORPHINE SULFATE 4 MG/ML SYRINGE IVP PRN (14:49)
--- NOTE | 2016-10-23 15:15 | P.CONS ---
History of Present Illness - Reason for Consult Consult date: 10/23/16 Post-op hypertension Requesting physician: Josue Christianson - History of Present Illness This is a 66-year-old male one of Dr. Perez with a previous medical history significant for diabetes mellitus type 2, hypertension and hypertensive cardiovascular disease, obstructive sleep apnea, morbid obesity status post lap banding, currently on no medication, patient was hospitalized at our hospital about a few weeks back when he was admitted to the hospital because of acute pancreatitis due to choledocholithiasis, and he was treated conservatively and he was seen by Dr. garcía as an outpatient and he was admitted to the hospital for laparoscopic cholecystectomy, patient was brought into the hospital as an observation overnight, he had an episode of hypertensive urgency in the recovery room he was placed on Vasotec 1.5 mg IV push every 6 hours as needed, he was also complaining of significant nausea and dry heaving and he was placed on scopolamine patch 1.5 mg every 72 hours, IV fluid resuscitation the form of half normal saline at 100 mL an hour, monitor the patient blood pressure very closely during the hospital stay and the patient blood pressure is better tomorrow he will be discharged home tomorrow morning. Review of Systems Constitutional: Denies anorexia, Denies chronic headaches, Denies weakness, Denies weight gain, Denies weight loss Eyes: denies blurred vision, denies bulging eye, denies decreased vision, denies diplopia Ears: deny: decreased hearing Ears, nose, mouth and throat: Denies dysphagia, Denies neck lump, Denies swelling in throat, Denies sore throat Cardiovascular: Reports high blood pressure, Denies chest pain, Denies decreased exercise tolerance, Denies dyspnea on exertion, Denies phlebitis, Denies rapid heart beat, Denies shortness of breath, Denies syncope Respiratory: Reports sleep apnea, Reports snoring, Denies congestion, Denies cough, Denies cough with sputum, Denies dyspnea, Denies home oxygen, Denies wheezing Gastrointestinal: Reports abdominal pain, Reports nausea, Denies bloating, Denies BRBPR, Denies change in bowel habits, Denies coffee ground emesis, Denies diarrhea, Denies dyspepsia, Denies hematemesis, Denies hematochezia, Denies melena, Denies vomiting Genitourinary: Reports nocturia, Denies dysuria Musculoskeletal: Denies myalgias Musculoskeletal: absent: ankle pain, ankle stiffness, ankle swelling, elbow pain , elbow stiffness, elbow swelling, foot pain, foot stiffness, foot swelling, hand pain, hand stiffness, hand swelling, hip pain, hip stiffness, hip swelling , knee pain, knee stiffness, knee swelling, shoulder pain, shoulder stiffness, shoulder swelling, wrist pain, wrist stiffness, wrist swelling Integumentary: Denies pruritus, Denies rash Neurological: Denies numbness, Denies weakness Psychiatric: Denies anxiety, Denies depression Endocrine: Denies fatigue, Denies weight change Past Medical History Past Medical History: Diabetes Mellitus, Hyperlipidemia, Hypertension, Osteoarthritis (OA), Sleep Apnea/CPAP/BIPAP Additional Past Medical History / Comment(s): Leg Cramps. PANCREATITIS 10/03/16; HAS LG GALLSTONE. OFF METFORMIN, HTN RX FOR PAST YEAR. HX SURG FOR SLEEP APNEA. HAS LAB BAND. UNABLE TO SLEEP IN A BED. History of Any Multi-Drug Resistant Organisms: None Reported Past Surgical History: Bariatric Surgery Additional Past Surgical History / Comment(s): Lap Band 2008 EST. Sleep Apnea Surgery UPPP. Past Anesthesia/Blood Transfusion Reactions: Previous Problems w/ Anesthesia, Motion Sickness, Postoperative Nausea & Vomiting (PONV) Additional Past Anesthesia/Blood Transfusion Reaction / Comm: PATIENT STATES THERE WAS ATTEMPT TO INTUBATE WHILE AWAKE, VERY TRAUMATIC, CLAUSTROPHOBIC NOW. Smoking Status: Never smoker - Past Family History Father Family Medical History: CVA/TIA Additional Family Medical History / Comment(s): Father dies at age 89 with CVA. Mother Family Medical History: Dementia Additional Family Medical History / Comment(s): Mother at age 86 from Alzheimer dementia. Maternal grandfather had gallbladder problems. Brother(s) Family Medical History: No Reported History Additional Family Medical History / Comment(s): Patient has one brother with no major medical problems. Patient does not have any sisters. Patient does not have any children. Medications and Allergies Home Medications Medication Instructions Recorded Confirmed Type Acetaminophen [Tylenol] 650 mg PO Q4H PRN 10/03/16 10/23/16 History Allergies Allergy/AdvReac Type Severity Reaction Status Date / Time hydromorphone [From Dilaudid] Allergy Nausea & Verified 10/23/16 08:08 Vomiting Physical Exam Vitals: Vital Signs Temp Pulse Pulse Pulse Resp BP Pulse Ox 10/23/16 13:45 98.1 F 65 16 217/89 94 L 10/23/16 13:00 51 L 16 157/68 96 10/23/16 12:45 50 L 17 153/67 96 10/23/16 12:30 51 L 16 174/76 96 10/23/16 12:15 64 16 168/74 99 10/23/16 12:00 57 L 16 189/94 99 10/23/16 11:45 98.2 F 71 12 183/84 94 L 10/23/16 08:12 98.0 F 83 16 180/80 95 Intake and Output 10/22/16 10/23/16 10/23/16 22:59 06:59 14:59 Intake Total 2300 Output Total 490 Balance 1810 Intake: IV 2300 Output: Urine 400 Estimated Blood Loss 90 - Constitutional General appearance: mild distress, morbidly obese - EENT Eyes: anicteric sclerae, EOMI, PERRLA, no ptosis, no scleral icterus, normal appearance ENT: hearing grossly normal, NA/AT, normal oropharynx, no thrush Ears: bilateral: normal - Neck Neck: no lymphadenopathy, normal ROM, no rigidity, no stridor, no thyromegaly Carotids: bilateral: upstroke normal Thyroid: bilateral: normal size - Respiratory Respiratory: bilateral: diminished, negative: dullness, rales, rhonchi, wheezing , prolonged expiration, prolonged inspiration - Cardiovascular Rhythm: regular Heart sounds: normal: S1, S2 Abnormal Heart Sounds: no systolic murmur, no S3 Gallop, no S4 Gallop, no click - Gastrointestinal General gastrointestinal: decreased bowel sounds, distended, soft, no splenomegaly, tenderness, no umbilical hernia, no ventral hernia - Integumentary Integumentary: normal, normal turgor - Neurologic Neurologic: CNII-XII intact - Musculoskeletal Musculoskeletal: strength equal bilaterally - Psychiatric Psychiatric: A&O x's 3, appropriate affect, intact judgment & insight Results Labs: Abnormal Lab Results - Last 24 Hours (Table) 10/23/16 10/23/16 Range/Units 08:24 12:10 POC Glucose (mg/dL) 126 H 180 H (75-99) mg/dL Assessment and Plan Plan: Assessment and plan: 1. History of cholelithiasis with choledocholithiasis induced pancreatitis. Status post laparoscopic cholecystectomy, patient was admitted as an observation , he would be starting on IV fluid half normal saline at 100 mL an hour, Zofran form and gram IV push every 6 hours as needed, scopolamine patch 1.5 mg every 72 hours, continue morphine 2 mg IV push every 4 hours as needed, continue Protonix 40 mg IV push every 24 hours, continue to monitor the patient very closely, bilateral SCDs, bilateral knee-high ALCON hose, early ambulation. 2. Accelerated hypertension. Start the patient on Vasotec 1.25 mg IV push every 6 hours, monitor the patient very closely, patient will need to go home on losartan 50 mg orally once every day. 3. Hypertension and hypertensive cardiovascular disease. Continue treatment as in the previous paragraph. 4. Obesity with obstructive sleep apnea. Patient will need to have a sleep study as an outpatient and he needs a CPAP. We'll provide the patient with recliner in the hospital. 5. Morbid obesity post laparoscopic banding. 6. Diabetes mellitus type 2. Continue consistent carb monitor diet as well as sliding scale insulin. 7. DVT prophylaxis. Heparin as well as bilateral knee-high ALCON hose and SCDs. 8. GI prophylaxis. Continue PPI. 8. Thank you Dr. Christianson for allowing me to participate in the care of your patient we'll follow the patient along with you.
[2016-10-23] MEDS ORDERED: hydrALAZINE HCL 20 MG/ML 1 ML VIAL IVP PRN (16:53)
[2016-10-23] MEDS ORDERED: cloNIDine HCL 0.1 MG TAB PO STA (16:55)
[2016-10-23] MEDS: HEPARIN SODIUM,PORCINE 5,000 UNIT/ML 1 ML VIAL SQ SCH (17:35)
[2016-10-23 17:42] LABS: Glucose,Whole Blood 191 mg/dL (75-99)
[2016-10-23] MEDS: INSULIN LISPRO (humaLOG) 300 UNIT/3 ML VIAL SQ SCH ×2 (18:35→22:21)
[2016-10-23 20:49] LABS: Glucose,Whole Blood 188 mg/dL (75-99)
[2016-10-23] MEDS: FAMOTIDINE 20 MG TAB PO SCH (22:20)
[2016-10-24] MEDS: ONDANSETRON 4 MG/2 ML VIAL IVP PRN (00:01)
[2016-10-24] MEDS: MORPHINE SULFATE 4 MG/ML SYRINGE IVP PRN (00:01)
[2016-10-24] MEDS: HEPARIN SODIUM,PORCINE 5,000 UNIT/ML 1 ML VIAL SQ SCH ×2 (00:02→09:04)
[2016-10-24 05:23] LABS: Basophils % (A) 0 %; CH 31.1; CHCM 34.8; Eosinophils # (A) 0.1 k/uL (0-0.7); Eosinophils % (A) 1 %; HCT 42.3 % (39.0-53.0); HDW 2.99; Luc # (Auto) 0.14; Luc % (Auto) 1; Lymphocytes # (A) 1.3 k/uL (1.0-4.8); Lymphocytes % (A) 12 %; MCH 31.9 pg (25.0-35.0); MCHC 35.6 g/dL (31.0-37.0); MCV 89.7 fL (80.0-100.0); Mean Platelet Volume 6.8; Monocytes # (A) 0.5 k/uL (0-1.0); Monocytes % (A) 5 %; Neutrophils # (A) 8.6 k/uL (1.3-7.7); Neutrophils % (A) 81 %; RBC 4.71 m/uL (4.30-5.90); RDW 12.3 % (11.5-15.5); WBC 10.6 k/uL (3.8-10.6); WBC (Perox) 11.16
[2016-10-24 05:56] LABS: ALT 58 U/L (21-72); AST 66 U/L (17-59); Alkaline Phosphatase 67 U/L (38-126); Anion Gap 12 mmol/L; Blood Urea Nitrogen 12 mg/dL (9-20); Calcium 9.1 mg/dL (8.4-10.2); Carbon Dioxide 23 mmol/L (22-30); Chloride 100 mmol/L (98-107); Glucose 149 mg/dL (74-99); Non-African American GFR(MDRD) >60 (>60 ml/min/1.73 sqM); Potassium 4.2 mmol/L (3.5-5.1); Sodium 135 mmol/L (137-145); Total Protein 6.2 g/dL (6.3-8.2)
[2016-10-24 07:04] LABS: Glucose,Whole Blood 139 mg/dL (75-99)
[2016-10-24 08:38] LABS: Hemoglobin A1C 6.8 % (4.2-6.1)
[2016-10-24] MEDS: SODIUM CHLORIDE 0.45% 1,000 ML IV SCH (08:46)
[2016-10-24] MEDS: FAMOTIDINE 20 MG TAB PO SCH (09:03)
[2016-10-24] MEDS: INSULIN LISPRO (humaLOG) 300 UNIT/3 ML VIAL SQ SCH ×2 (09:06→13:00)
[2016-10-24 12:04] LABS: Glucose,Whole Blood 129 mg/dL (75-99)
[2016-10-24 12:26] VITALS: BP 118/55; PULSE 57; RESP 19; TEMP 98.6
--- NOTE | 2016-10-24 14:13 | P.DS ---
Providers Date of admission: 10/24/16 03:17 Expected date of discharge: 10/24/16 Attending physician: Josue Christianson Consults: 10/23/16 14:35 Consult Physician Routine Consulting Provider: Garrett Cooper Consult Reason/Comments: medical management Do you want consulting provider notified?: Already Contacted Primary care physician: Gilbert Hedrick [facility] Course: Patient yesterday after outpatient elective lap scopic cholecystectomy. He has done well postoperatively. His drain is serosanguineous. Minimal discomfort. Labs have been reviewed. He would like to go home today. He'll be discharged with his drain in place. Follow-up in the office 1 week. Plan - Discharge Summary New Discharge Prescriptions: New traMADol HCl [Ultram] 50 mg PO Q6H PRN #30 tab PRN Reason: Pain No Action Acetaminophen [Tylenol] 650 mg PO Q4H PRN PRN Reason: Pain Discharge Medication List Acetaminophen [Tylenol] 650 mg PO Q4H PRN 10/03/16 [History] traMADol HCl [Ultram] 50 mg PO Q6H PRN #30 tab 10/23/16 [Rx]
--- NOTE | 2016-10-24 15:58 | P.PN ---
Subjective This is a 66-year-old male one of Dr. Perez with a previous medical history significant for diabetes mellitus type 2, hypertension and hypertensive cardiovascular disease, obstructive sleep apnea, morbid obesity status post lap banding, currently on no medication, patient was hospitalized at our hospital about a few weeks back when he was admitted to the hospital because of acute pancreatitis due to choledocholithiasis, and he was treated conservatively and he was seen by Dr. Christianson as an outpatient and he was admitted to the hospital for laparoscopic cholecystectomy, patient was brought into the hospital as an observation overnight, he had an episode of hypertensive urgency in the recovery room he was placed on Vasotec 1.5 mg IV push every 6 hours as needed, he was also complaining of significant nausea and dry heaving and he was placed on scopolamine patch 1.5 mg every 72 hours, IV fluid resuscitation the form of half normal saline at 100 mL an hour, monitor the patient blood pressure very closely during the hospital stay and the patient blood pressure is better tomorrow he will be discharged home tomorrow morning. 10/24: Patient's blood pressure readings have been under control. Patient has been instructed to take his lisinopril which he has at home but has not been recently taking. Patient will follow-up with Dr. Pena for reevaluation within the week. Patient is cleared for discharge from medicine. Dr. Christianson is planning for discharge today. Objective - Vital Signs Vital signs: Vital Signs Temp 97.8 F 10/24/16 08:00 Pulse 58 L 10/24/16 08:00 Resp 18 10/24/16 08:00 BP 142/60 10/24/16 08:00 Pulse Ox 96 10/24/16 08:29 Intake & Output 10/23/16 10/24/16 10/24/16 18:59 06:59 18:59 Intake Total 2300 440 Output Total 780 160 Balance 1520 -160 440 Intake: IV 2300 Oral 440 Output: Drainage 40 160 Right Abdomen 40 160 Urine 650 Estimated Blood Loss 90 Other: Voiding Method Urinal Toilet Toilet # Voids 1 2 - Exam - Constitutional General appearance: mild distress, morbidly obese - EENT Eyes: anicteric sclerae, EOMI, PERRLA, no ptosis, no scleral icterus, normal appearance ENT: hearing grossly normal, NA/AT, normal oropharynx, no thrush Ears: bilateral: normal - Neck Neck: no lymphadenopathy, normal ROM, no rigidity, no stridor, no thyromegaly Carotids: bilateral: upstroke normal Thyroid: bilateral: normal size - Respiratory Respiratory: bilateral: diminished, negative: dullness, rales, rhonchi, wheezing , prolonged expiration, prolonged inspiration - Cardiovascular Rhythm: regular Heart sounds: normal: S1, S2 Abnormal Heart Sounds: no systolic murmur, no S3 Gallop, no S4 Gallop, no click - Gastrointestinal General gastrointestinal: decreased bowel sounds, distended, soft, no splenomegaly, tenderness, no umbilical hernia, no ventral hernia - Integumentary Integumentary: normal, normal turgor - Neurologic Neurologic: CNII-XII intact - Musculoskeletal Musculoskeletal: strength equal bilaterally - Psychiatric Psychiatric: A&O x's 3, appropriate affect, intact judgment & insight - Labs CBC & Chem 7: 10/24/16 05:02 10/24/16 05:02 Labs: Abnormal Lab Results - Last 24 Hours (Table) 10/23/16 10/23/16 10/23/16 Range/Units 12:10 17:40 20:47 Neutrophils # (1.3-7.7) k/uL Sodium (137-145) mmol/L Glucose (74-99) mg/dL POC Glucose (mg/dL) 180 H 191 H 188 H (75-99) mg/dL Hemoglobin A1c (4.2-6.1) % AST (17-59) U/L Total Protein (6.3-8.2) g/dL 10/24/16 10/24/16 10/24/16 Range/Units 05:02 05:02 05:02 Neutrophils # 8.6 H (1.3-7.7) k/uL Sodium 135 L (137-145) mmol/L Glucose 149 H (74-99) mg/dL POC Glucose (mg/dL) (75-99) mg/dL Hemoglobin A1c 6.8 H (4.2-6.1) % AST 66 H (17-59) U/L Total Protein 6.2 L (6.3-8.2) g/dL 10/24/16 Range/Units 06:55 Neutrophils # (1.3-7.7) k/uL Sodium (137-145) mmol/L Glucose (74-99) mg/dL POC Glucose (mg/dL) 139 H (75-99) mg/dL Hemoglobin A1c (4.2-6.1) % AST (17-59) U/L Total Protein (6.3-8.2) g/dL Assessment and Plan Plan: 1. History of cholelithiasis with choledocholithiasis induced pancreatitis. Status post laparoscopic cholecystectomy, patient was admitted as an observation , he would be starting on IV fluid half normal saline at 100 mL an hour, Zofran form and gram IV push every 6 hours as needed, scopolamine patch 1.5 mg every 72 hours, continue morphine 2 mg IV push every 4 hours as needed, continue Protonix 40 mg IV push every 24 hours, continue to monitor the patient very closely, bilateral SCDs, bilateral knee-high ALCON hose, early ambulation. 2. Accelerated hypertension. Start the patient on Vasotec 1.25 mg IV push every 6 hours, monitor the patient very closely, patient will need to go home on losartan 50 mg orally once every day. 3. Hypertension and hypertensive cardiovascular disease. Continue treatment as in the previous paragraph. 4. Obesity with obstructive sleep apnea. Patient will need to have a sleep study as an outpatient and he needs a CPAP. We'll provide the patient with recliner in the hospital. 5. Morbid obesity post laparoscopic banding. 6. Diabetes mellitus type 2. Continue consistent carb monitor diet as well as sliding scale insulin. 7. DVT prophylaxis. Heparin as well as bilateral knee-high ALCON hose and SCDs. 8. GI prophylaxis. Continue PPI. Discharge plan: Return home Impression and plan of care have been directed as dictated by the signing physician. Corazon Trivedi nurse practitioner acting as scribe for signing physician.
== END 2016-10-24 15:39 | disposition home or self-care (01) ==
LOC: OR 07:48 → 3OBS 11:45 → OR 10-24 03:17
PROVIDERS: ADMIT Surgery; ATTEND Surgery
DX: K80.10 Calculus of gallbladder with chronic cholecystitis without obstruction (principal); K85.10 Biliary acute pancreatitis without necrosis or infection; I16.0 Hypertensive urgency; I11.9 Hypertensive heart disease without heart failure; E11.9 Type 2 diabetes mellitus without complications; G47.33 Obstructive sleep apnea (adult) (pediatric); E78.5 Hyperlipidemia, unspecified; M19.90 Unspecified osteoarthritis, unspecified site; Z88.5 Allergy status to narcotic agent; Z82.3 Family history of stroke; Z82.0 Family history of epilepsy and other diseases of the nervous system; Z98.84 Bariatric surgery status
CPT/HCPCS: 47562; 94760; 88304; 80053; 83036; 85025; G0378; J2250; J0330; J2270 ×3; J0360; J1644 ×2; J1100; J2710; J0690; J2405 ×2; J2001; J3010; J2370; J2704

== ENCOUNTER 2016-10-27 20:02 | Observation (INO) | payer MEDICARE ==
[2016-10-27] MEDS ORDERED: SODIUM CHLORIDE 0.9% 1,000 ML IV STA (21:02)
[2016-10-27] MEDS ORDERED: RX INFO: IV CONTRAST WAS GIVEN 1 EACH MISC MISCELLANE PRN (21:25)
--- NOTE | 2016-10-27 21:25 | ED ---
Abdominal Pain HPI - General Source: patient, RN notes reviewed Mode of arrival: wheelchair Limitations: no limitations <Millicent Crum - Last Filed: 10/28/16 06:40> <Rafiq Saldivar - Last Filed: 11/08/16 09:31> - General Chief Complaint: Abdominal Pain Stated Complaint: post surgery-nausea Time Seen by Provider: 10/27/16 21:02 - History of Present Illness Initial Comments: This is a 66-year-old male presenting to the ED chief complaint of fever and right upper quadrant abdominal pain 2 days after a cholecystectomy by Dr. Grace. Patient reports that he had a difficult surgery where they had to place a Opp-Parnell drain over the right upper quadrant incision. Patient reports that Dr. Grace told him if there is any abnormal coloration of drainage or fevers 8 return to the emergency department at once. Patient reports that he's had dry heaves for the past day. He does have a history of LAP-BAND surgery. He states that the drain has been draining blood and has had a few clots. ( Millicent Crum) - Related Data Home Medications Medication Instructions Recorded Confirmed Acetaminophen [Tylenol] 650 mg PO Q4H PRN 10/03/16 10/28/16 Lisinopril-Hctz 20-12.5 mg 1 tab PO DAILY 10/28/16 10/28/16 [Zestoretic 20-12.5] metFORMIN HCL ER [Glucophage Xr] 500 mg PO BID 10/28/16 10/28/16 Previous Rx's Medication Instructions Recorded traMADol HCl [Ultram] 50 mg PO Q6H PRN #30 tab 10/23/16 Allergies Allergy/AdvReac Type Severity Reaction Status Date / Time hydromorphone [From Dilaudid] Allergy Nausea & Verified 10/27/16 20:52 Vomiting Review of Systems ROS Other: All systems not noted in ROS Statement are negative. <Millicent Crum - Last Filed: 10/28/16 06:40> ROS Other: All systems not noted in ROS Statement are negative. <Rafiq Saldivar - Last Filed: 11/08/16 09:31> ROS Statement: Those systems with pertinent positive or pertinent negative responses have been documented in the HPI. Past Medical History Past Medical History: Diabetes Mellitus, Hyperlipidemia, Hypertension, Osteoarthritis (OA), Prostate Disorder, Sleep Apnea/CPAP/BIPAP Additional Past Medical History / Comment(s): leg cramps History of Any Multi-Drug Resistant Organisms: None Reported Past Surgical History: Cholecystectomy Additional Past Surgical History / Comment(s): lap band, sleep apnea surgery UPPP Past Psychological History: No Psychological Hx Reported Smoking Status: Never smoker Past Alcohol Use History: None Reported Past Drug Use History: None Reported - Past Family History Father Additional Family Medical History / Comment(s): Father dies at age 89 with CVA. Mother Additional Family Medical History / Comment(s): Mother at age 86 from Alzheimer dementia. Maternal grandfather had gallbladder problems. Brother(s) Additional Family Medical History / Comment(s): Patient has one brother with no major medical problems. Patient does not have any sisters. Patient does not have any children. <Millicent Crum - Last Filed: 10/28/16 06:40> General Exam Limitations: no limitations General appearance: alert, in no apparent distress Head exam: Present: atraumatic, normocephalic, normal inspection Eye exam: Present: normal appearance, PERRL, EOMI. Absent: scleral icterus, conjunctival injection, periorbital swelling ENT exam: Present: normal exam, mucous membranes moist Neck exam: Present: normal inspection. Absent: tenderness, meningismus, lymphadenopathy Respiratory exam: Present: normal lung sounds bilaterally. Absent: respiratory distress, wheezes, rales, rhonchi, stridor Cardiovascular Exam: Present: regular rate, normal rhythm, normal heart sounds. Absent: systolic murmur, diastolic murmur, rubs, gallop, clicks GI/Abdominal exam: Present: soft, tenderness (Patient has significant right upper quadrant tenderness near incision site. Evidence of Pop-Parnell drain with blood and blood clots within the tubing system.), normal bowel sounds. Absent: distended, guarding, rebound, rigid Extremities exam: Present: normal inspection, full ROM, normal capillary refill. Absent: tenderness, pedal edema, joint swelling, calf tenderness Back exam: Present: normal inspection Neurological exam: Present: alert, oriented X3, CN II-XII intact Psychiatric exam: Present: normal affect, normal mood Skin exam: Present: warm, dry, intact, normal color. Absent: rash <Millicent Crum - Last Filed: 10/28/16 06:40> <Rafiq Saldivar - Last Filed: 11/08/16 09:31> - General Exam Comments Initial Comments: 66-year-old male. Patient is morbidly obese. (Millicent Crum) Medical Decision Making - Lab Data Result diagrams: 10/27/16 21:40 10/27/16 21:40 - Radiology Data Radiology results: report reviewed <Millicent Crum - Last Filed: 10/28/16 06:40> - Lab Data Result diagrams: 10/27/16 21:40 10/27/16 21:40 <Rafiq Saldivar - Last Filed: 11/08/16 09:31> - Medical Decision Making This is a 66-year-old male presenting to the ED chief complaint of fever and right upper quadrant abdominal pain 2 days after a cholecystectomy by Dr. Grace. Patient reports that he had a difficult surgery where they had to place a Pop-Parnell drain over the right upper quadrant incision. Patient reports that Dr. Grace told him if there is any abnormal coloration of drainage or fevers 8 return to the emergency department at once. Patient did have singinfant blood clots noted in drain. Patient recieved iv fluids nad blood work negative for leukocytosis or any other significant abnormality. Patient did receibe CT scan, which shows mildly enlarged lymphnodes with mesenteric adenitis or paniculitis. Discussed with Dr. Saldivar. We did consult Dr. Prather, and patient will be admitted overnight. At this time they do not want to start antiobiocs. (Millicent Crum) I saw this patient in conjunction with the physician human resource assistant. I performed independent history and physical exam. Agree with case management. (Rafiq Saldivar) - Lab Data Lab Results 10/27/16 10/27/16 10/27/16 Range/Units 21:40 21:40 21:40 WBC 9.3 (3.8-10.6) k/uL RBC 5.10 (4.30-5.90) m/uL Hgb 16.0 (13.0-17.5) gm/dL Hct 45.5 (39.0-53.0) % MCV 89.3 (80.0-100.0) fL MCH 31.4 (25.0-35.0) pg MCHC 35.2 (31.0-37.0) g/dL RDW 12.7 (11.5-15.5) % Plt Count 183 (150-450) k/uL Neutrophils % 72 % Lymphocytes % 14 % Monocytes % 5 % Eosinophils % 7 % Basophils % 0 % Neutrophils # 6.7 (1.3-7.7) k/uL Lymphocytes # 1.3 (1.0-4.8) k/uL Monocytes # 0.5 (0-1.0) k/uL Eosinophils # 0.7 (0-0.7) k/uL Basophils # 0.0 (0-0.2) k/uL Sodium 138 (137-145) mmol/L Potassium 4.2 (3.5-5.1) mmol/L Chloride 99 (98-107) mmol/L Carbon Dioxide 27 (22-30) mmol/L Anion Gap 12 mmol/L BUN 10 (9-20) mg/dL Creatinine 0.90 (0.66-1.25) mg/dL Est GFR (MDRD) Af Amer >60 (>60 ml/min/1.73 sqM) Est GFR (MDRD) Non-Af >60 (>60 ml/min/1.73 sqM) Glucose 137 H (74-99) mg/dL Plasma Lactic Acid Kenny 1.3 (0.7-2.0) mmol/L Calcium 9.4 (8.4-10.2) mg/dL Total Bilirubin 1.5 H (0.2-1.3) mg/dL AST 48 (17-59) U/L ALT 59 (21-72) U/L Alkaline Phosphatase 71 (38-126) U/L Total Protein 6.4 (6.3-8.2) g/dL Albumin 4.0 (3.5-5.0) g/dL Amylase <30 L (30-110) U/L Lipase 238 (23-300) U/L Urine Color Urine Appearance (Clear) Urine pH (5.0-8.0) Ur Specific Dawson (1.001-1.035) Urine Protein (Negative) Urine Glucose (UA) (Negative) Urine Ketones (Negative) Urine Blood (Negative) Urine Nitrite (Negative) Urine Bilirubin (Negative) Urine Urobilinogen (<2.0) mg/dL Ur Leukocyte Esterase (Negative) 07/02/17 Range/Units 23:00 WBC (3.8-10.6) k/uL RBC (4.30-5.90) m/uL Hgb (13.0-17.5) gm/dL Hct (39.0-53.0) % MCV (80.0-100.0) fL MCH (25.0-35.0) pg MCHC (31.0-37.0) g/dL RDW (11.5-15.5) % Plt Count (150-450) k/uL Neutrophils % % Lymphocytes % % Monocytes % % Eosinophils % % Basophils % % Neutrophils # (1.3-7.7) k/uL Lymphocytes # (1.0-4.8) k/uL Monocytes # (0-1.0) k/uL Eosinophils # (0-0.7) k/uL Basophils # (0-0.2) k/uL Sodium (137-145) mmol/L Potassium (3.5-5.1) mmol/L Chloride (98-107) mmol/L Carbon Dioxide (22-30) mmol/L Anion Gap mmol/L BUN (9-20) mg/dL Creatinine (0.66-1.25) mg/dL Est GFR (MDRD) Af Amer (>60 ml/min/1.73 sqM) Est GFR (MDRD) Non-Af (>60 ml/min/1.73 sqM) Glucose (74-99) mg/dL Plasma Lactic Acid Kenny (0.7-2.0) mmol/L Calcium (8.4-10.2) mg/dL Total Bilirubin (0.2-1.3) mg/dL AST (17-59) U/L ALT (21-72) U/L Alkaline Phosphatase (38-126) U/L Total Protein (6.3-8.2) g/dL Albumin (3.5-5.0) g/dL Amylase (30-110) U/L Lipase (23-300) U/L Urine Color Yellow Urine Appearance Clear (Clear) Urine pH 7.0 (5.0-8.0) Ur Specific Dawson 1.014 (1.001-1.035) Urine Protein Trace H (Negative) Urine Glucose (UA) Negative (Negative) Urine Ketones 1+ H (Negative) Urine Blood Negative (Negative) Urine Nitrite Negative (Negative) Urine Bilirubin Negative (Negative) Urine Urobilinogen <2.0 (<2.0) mg/dL Ur Leukocyte Esterase Negative (Negative) - Radiology Data CT shows mild adentits consitestnt with possible paniculitis. (Millicent Crum) Disposition Time of Disposition: 01:20 <Millicent Crum - Last Filed: 10/28/16 06:40> <Rafiq Saldivar - Last Filed: 11/08/16 09:31> Clinical Impression: Nausea, Post-cholecystectomy syndrome Disposition: ADMITTED IP TO THIS HOSP Condition: Stable
[2016-10-27 22:02] LABS: Basophils % (A) 0 %; CH 31.7; CHCM 35.7; Eosinophils # (A) 0.7 k/uL (0-0.7); Eosinophils % (A) 7 %; HCT 45.5 % (39.0-53.0); HDW 2.89; Luc # (Auto) 0.12; Luc % (Auto) 1; Lymphocytes # (A) 1.3 k/uL (1.0-4.8); Lymphocytes % (A) 14 %; MCH 31.4 pg (25.0-35.0); MCHC 35.2 g/dL (31.0-37.0); MCV 89.3 fL (80.0-100.0); Mean Platelet Volume 7.5; Monocytes # (A) 0.5 k/uL (0-1.0); Monocytes % (A) 5 %; Neutrophils # (A) 6.7 k/uL (1.3-7.7); Neutrophils % (A) 72 %; RDW 12.7 % (11.5-15.5); WBC 9.3 k/uL (3.8-10.6); WBC (Perox) 8.97
--- NOTE | 2016-10-27 22:09 | XR ---
EXAMINATION TYPE: XR KUB DATE OF EXAM: 10/27/2016 COMPARISON: NONE HISTORY: Pain TECHNIQUE: Single supine KUB image of the abdomen is obtained FINDINGS: Small bowel demonstrates no evidence for dilatation or air fluid levels. Gas and fecal material is seen in non-distended colon. No convincing evidence for pneumoperitoneum. 1 cm calcification overlies the region of the lower pole of the right kidney. Catheter overlies the region of the gallbladder fossa with cholecystectomy clips in place. Gastric ba nding device is in place. The lung bases are clear. The osseous structures are intact. IMPRESSION: 1. Suspect right-sided nephrolithiasis.
[2016-10-27 22:16] LABS: ALT 59 U/L (21-72); AST 48 U/L (17-59); Alkaline Phosphatase 71 U/L (38-126); Amylase <30 U/L (30-110); Anion Gap 12 mmol/L; Blood Urea Nitrogen 10 mg/dL (9-20); Calcium 9.4 mg/dL (8.4-10.2); Carbon Dioxide 27 mmol/L (22-30); Chloride 99 mmol/L (98-107); Glucose 137 mg/dL (74-99); Non-African American GFR(MDRD) >60 (>60 ml/min/1.73 sqM); Potassium 4.2 mmol/L (3.5-5.1); Sodium 138 mmol/L (137-145); Total Bilirubin 1.5 mg/dL (0.2-1.3); Total Protein 6.4 g/dL (6.3-8.2)
[2016-10-27 23:18] LABS: Appearance,Urine Clear (Clear); Bilirubin,Urine Negative (Negative); Glucose,Urine (UA) Negative (Negative); Ketones,Urine 1+ (Negative); Leukocyte Esterase,Urine Negative (Negative); Nitrite,Urine Negative (Negative); Protein,Urine Trace (Negative); Specific Gravity,Urine 1.014 (1.001-1.035); UA Billing (MACRO vs. MICRO) CHEM; Urobilinogen,Urine <2.0 mg/dL (<2.0)
[2016-10-27] MEDS ORDERED: MORPHINE SULFATE 4 MG/ML SYRINGE IVP STA (23:40)
[2016-10-28] MEDS: SODIUM CHLORIDE 0.9% 1,000 ML IV SCH ×2 (00:11→09:51)
--- NOTE | 2016-10-28 00:17 | CT ---
EXAM: CT Abdomen and Pelvis With Intravenous Contrast CLINICAL HISTORY: Reason: Pain TECHNIQUE: Axial computed tomography images of the abdomen and pelvis with intravenous contrast. CTDI is 0.39, 55.89, 58.57 mGy and DLP is 4639 mGy-cm. This CT exam was performed using one or more of the following dose reduction techniques: automated exposure control, adjustment of the mA and/or kV according to patient size, and/or use of iterative reconstruction technique. COMPARISON: CT 10/03/16. FINDINGS: Lower thorax: Mild basilar atelectatic changes. ABDOMEN: Liver: Fatty liver. Gallbladder and bile ducts: Status post interval cholecystectomy with postsurgical changes related to abdominal wall and drainage catheter in the cholecystectomy bed. Stranding is seen in the gallbladder fossa, may be related to postoperative change. No organized fluid collection is identified. Pancreas: Unremarkable. Spleen: Splenomegaly. Adrenals: Unremarkable. Kidneys and ureters: Right renal cystic structure and nonobstructing calculi. No hydronephrosis. Stomach and bowel: Gastric lap band again noted. No evidence of small bowel obstruction. Appendix: No findings to suggest acute appendicitis. PELVIS: Bladder: Mildly thickened underdistended bladder. Reproductive: Unremarkable as visualized. ABDOMEN and PELVIS: Intraperitoneal space: Mesenteric stranding with small lymph nodes, can be seen with mesenteric adenitis/panniculitis. Bones/joints: No acute fracture. Soft tissues: Unremarkable. Vasculature: Atherosclerotic disease. Lymph nodes: See above. Prominent right upper quadrant lymph nodes. IMPRESSION: 1. Postsurgical changes status post interval cholecystectomy. Stranding is seen in the gallbladder fossa, may be related to postoperative change. No organized fluid collection is identified. 2. Mesenteric stranding with small lymph nodes, can be seen with mesenteric adenitis/panniculitis. 3. Mildly thickened underdistended bladder. 4. Additional incidental findings similar to prior study.
[2016-10-28] MEDS ORDERED: NALOXONE 0.4 MG/ML 1 ML VIAL IV PRN ×2 (01:15→01:19)
[2016-10-28] MEDS ORDERED: ACETAMINOPHEN TAB 325 MG TAB PO PRN (01:15)
[2016-10-28] MEDS ORDERED: HYDROmorphone 1 MG/ML 1 ML SYRINGE IV PRN (01:15)
[2016-10-28] MEDS ORDERED: ONDANSETRON 4 MG/2 ML VIAL IVP PRN (01:19)
[2016-10-28] MEDS ORDERED: ONDANSETRON 4 MG/2 ML VIAL IVP STA (01:22)
[2016-10-28 02:35] VITALS: BMI 49.5
[2016-10-28 06:36] LABS: Glucose,Whole Blood 139 mg/dL (75-99)
--- NOTE | 2016-10-28 07:07 | P.GSHP ---
History of Present Illness H&P Date: 10/28/16 Chief Complaint: Nausea The patient is status post laparoscopic cholecystectomy. He had been feeling well however through the day yesterday began to fill ill. He progressively became weak and then nauseated. He had dry heaves. He came into the emergency department. No fevers or chills. He had been stooling. He was sent home with a ALBERTO drain. He thought he saw some streaks of "blue" in the drain. Past Medical History Past Medical History: Diabetes Mellitus, Hyperlipidemia, Hypertension, Osteoarthritis (OA), Prostate Disorder, Sleep Apnea/CPAP/BIPAP Additional Past Medical History / Comment(s): leg cramps History of Any Multi-Drug Resistant Organisms: None Reported Past Surgical History: Cholecystectomy Additional Past Surgical History / Comment(s): lap band, sleep apnea surgery UPPP Past Anesthesia/Blood Transfusion Reactions: No Reported Reaction, Postoperative Nausea & Vomiting (PONV) Past Psychological History: No Psychological Hx Reported Smoking Status: Never smoker Past Alcohol Use History: None Reported Past Drug Use History: None Reported - Past Family History Father Additional Family Medical History / Comment(s): Father dies at age 89 with CVA. Mother Additional Family Medical History / Comment(s): Mother at age 86 from Alzheimer dementia. Maternal grandfather had gallbladder problems. Brother(s) Additional Family Medical History / Comment(s): Patient has one brother with no major medical problems. Patient does not have any sisters. Patient does not have any children. Medications and Allergies Home Medications Medication Instructions Recorded Confirmed Type Acetaminophen [Tylenol] 650 mg PO Q4H PRN 10/03/16 10/28/16 History Lisinopril(Unknown) 1 tab PO DAILY 10/27/16 10/28/16 History Metformin(Unknown) 1 tab PO BID 10/27/16 10/28/16 History Allergies Allergy/AdvReac Type Severity Reaction Status Date / Time hydromorphone [From Dilaudid] Allergy Nausea & Verified 10/27/16 20:52 Vomiting Surgical - Exam Osteopathic Statement: *. No significant issues noted on an osteopathic structural exam other than those noted in the History and Physical/Consult. Vital Signs Temp Pulse Resp BP Pulse Ox 98.0 F 74 18 195/90 96 10/27/16 20:26 10/27/16 20:26 10/27/16 20:26 10/27/16 20:26 10/27/16 20:26 - General well developed, well nourished, no distress - Eyes normal ocular movement - ENT normal mucosa - Neck trachea midline - Respiratory normal expansion, normal respiratory effort, clear to auscultation - Cardiovascular Rhythm: regular - Abdomen There is a ALBERTO drain in place draining serosanguineous fluid Abdomen: soft, tender (Mild incisional tenderness without guarding or rebound), bowel sounds Results - Labs 10/27/16 21:40 10/27/16 21:40 Abnormal Lab Results - Last 24 Hours (Table) 10/27/16 10/27/16 10/28/16 Range/Units 21:40 23:00 06:35 Glucose 137 H (74-99) mg/dL POC Glucose (mg/dL) 139 H (75-99) mg/dL Total Bilirubin 1.5 H (0.2-1.3) mg/dL Amylase <30 L (30-110) U/L Urine Protein Trace H (Negative) Urine Ketones 1+ H (Negative) Diabetes panel 10/27/16 Range/Units 21:40 Sodium 138 (137-145) mmol/L Potassium 4.2 (3.5-5.1) mmol/L Chloride 99 (98-107) mmol/L Carbon Dioxide 27 (22-30) mmol/L BUN 10 (9-20) mg/dL Creatinine 0.90 (0.66-1.25) mg/dL Glucose 137 H (74-99) mg/dL Calcium 9.4 (8.4-10.2) mg/dL AST 48 (17-59) U/L ALT 59 (21-72) U/L Alkaline Phosphatase 71 (38-126) U/L Total Protein 6.4 (6.3-8.2) g/dL Albumin 4.0 (3.5-5.0) g/dL Calcium panel 10/27/16 Range/Units 21:40 Calcium 9.4 (8.4-10.2) mg/dL Albumin 4.0 (3.5-5.0) g/dL Pituitary panel 10/27/16 Range/Units 21:40 Sodium 138 (137-145) mmol/L Potassium 4.2 (3.5-5.1) mmol/L Chloride 99 (98-107) mmol/L Carbon Dioxide 27 (22-30) mmol/L BUN 10 (9-20) mg/dL Creatinine 0.90 (0.66-1.25) mg/dL Glucose 137 H (74-99) mg/dL Calcium 9.4 (8.4-10.2) mg/dL Adrenal panel 10/27/16 Range/Units 21:40 Sodium 138 (137-145) mmol/L Potassium 4.2 (3.5-5.1) mmol/L Chloride 99 (98-107) mmol/L Carbon Dioxide 27 (22-30) mmol/L BUN 10 (9-20) mg/dL Creatinine 0.90 (0.66-1.25) mg/dL Glucose 137 H (74-99) mg/dL Calcium 9.4 (8.4-10.2) mg/dL Total Bilirubin 1.5 H (0.2-1.3) mg/dL AST 48 (17-59) U/L ALT 59 (21-72) U/L Alkaline Phosphatase 71 (38-126) U/L Total Protein 6.4 (6.3-8.2) g/dL Albumin 4.0 (3.5-5.0) g/dL - Imaging CT scan - abdomen: report reviewed Assessment and Plan (1) Nausea Status: Acute Plan: The patient is feeling better today so we'll start him on a diet. He was taking tramadol for pain so we'll switch him over to [place] and see if that makes him feel better. Possible discharge later today if he is able to tolerate a diet.
[2016-10-28] MEDS ORDERED: HYDROcodone/APAP 5-325MG 1 EACH TAB PO PRN (07:08)
[2016-10-28 08:14] VITALS: RESP 16
[2016-10-28 11:50] VITALS: BP 186/61; PULSE 57; TEMP 97.6
[2016-10-28 12:01] LABS: Glucose,Whole Blood 121 mg/dL (75-99)
[2016-10-28] MEDS ORDERED: LISINOPRIL-HCTZ 20-12.5 MG 1 EACH TAB PO SCH (12:30)
[2016-10-28] MEDS ORDERED: metFORMIN 500 MG TAB PO SCH ×2 (12:30)
== END 2016-10-28 16:05 | disposition home or self-care (01) ==
LOC: EC 20:02 → 3OBS 10-28 00:44
PROVIDERS: ADMIT Surgery; ATTEND Surgery
DX: K91.5 Postcholecystectomy syndrome (principal); I10 Essential (primary) hypertension; G47.30 Sleep apnea, unspecified; E78.5 Hyperlipidemia, unspecified; E11.9 Type 2 diabetes mellitus without complications; N42.9 Disorder of prostate, unspecified; M19.90 Unspecified osteoarthritis, unspecified site; E66.01 Morbid (severe) obesity due to excess calories; Z98.890 Other specified postprocedural states; Z98.84 Bariatric surgery status; Z79.84 Long term (current) use of oral hypoglycemic drugs; Z79.899 Other long term (current) drug therapy; Z88.5 Allergy status to narcotic agent; Z68.42 Body mass index [BMI] 45.0-49.9, adult; Z99.89 Dependence on other enabling machines and devices
CPT/HCPCS: 96361 ×7; 96374 ×2; 96375 ×2; 99285 ×2; 36415; 80053; 82150; 83605; 83690; 85025; 81003; 87040; 74000; 74177; G0378; J2270; J2405; Q9967

== ENCOUNTER 2018-09-20 17:31 | Emergency (ER) | payer MEDICARE ==
--- NOTE | 2018-09-20 18:45 | ED ---
Abdominal Pain HPI - General Chief Complaint: Abdominal Pain Stated Complaint: constipation Time Seen by Provider: 09/20/18 18:33 Source: patient Mode of arrival: ambulatory Limitations: no limitations - History of Present Illness Initial Comments: 67-year-old male presenting with abdominal pain and constipation. Patient states that his last bowel movement was 4 days prior. Prior to that he would have a bowel movement daily. He denies history of constipation, new medications including narcotics, recent colonoscopy, or marked change in his diet. Patient states he was initially passing gas but now he is no longer able to. He is having generalized abdominal pressure with a dull ache in his right lower quadrant. He denies any nausea, vomiting, or fevers or chills. Patient's states he tried to ducal ex tablets without relief. Denies any history of bowel obstruction is a history of abdominal surgery in the past. - Related Data Home Medications Medication Instructions Recorded Confirmed Acetaminophen [Tylenol] 650 mg PO Q4H PRN 10/03/16 10/28/16 Lisinopril-Hctz 20-12.5 mg 1 tab PO DAILY 10/28/16 10/28/16 [Zestoretic 20-12.5] metFORMIN HCL ER [Glucophage Xr] 500 mg PO BID 10/28/16 10/28/16 Previous Rx's Medication Instructions Recorded traMADol HCl [Ultram] 50 mg PO Q6H PRN #30 tab 10/23/16 Allergies Allergy/AdvReac Type Severity Reaction Status Date / Time hydromorphone [From Dilaudid] Allergy Nausea & Verified 09/20/18 17:43 Vomiting Review of Systems ROS Statement: Those systems with pertinent positive or pertinent negative responses have been documented in the HPI. Review of Systems Constitutional: Denies fever, chills Eyes: Denies change in vision, Denies pain Ears, nose, mouth, throat: Denies headaches, Denies sore throat Cardiovascular: Denies chest pain. Denies palpitations Respiratory: Denies shortness of breath, Denies cough Gastrointestinal: Denies abdominal pain. Denies nausea, vomiting, diarrhea. Genitourinary: Denies hematuria, Denies infections Musculoskeletal: Denies pain, Denies swelling Integumentary: Denies rash Neurological: Denies headache, focal weakness, focal numbness Psychiatric: Denies anxiety, Denies depression Hematologic/Lymphatic: Denies easy bleeding or bruising ROS Other: All systems not noted in ROS Statement are negative. Past Medical History Past Medical History: Diabetes Mellitus, Hyperlipidemia, Hypertension, Osteoarthritis (OA), Prostate Disorder, Sleep Apnea/CPAP/BIPAP Additional Past Medical History / Comment(s): leg cramps History of Any Multi-Drug Resistant Organisms: None Reported Past Surgical History: Cholecystectomy Additional Past Surgical History / Comment(s): lap band, sleep apnea surgery UPPP Past Anesthesia/Blood Transfusion Reactions: No Reported Reaction, Postoperative Nausea & Vomiting (PONV) Past Psychological History: No Psychological Hx Reported Smoking Status: Never smoker Past Alcohol Use History: None Reported Past Drug Use History: None Reported - Past Family History Father Additional Family Medical History / Comment(s): Father dies at age 89 with CVA. Mother Additional Family Medical History / Comment(s): Mother at age 86 from Alzheimer dementia. Maternal grandfather had gallbladder problems. Brother(s) Additional Family Medical History / Comment(s): Patient has one brother with no major medical problems. Patient does not have any sisters. Patient does not have any children. General Exam - General Exam Comments Initial Comments: General: Awake, alert, No acute Distress HENT: Normocephalic. Atraumatic Eyes: PERRL. EOMI. No scleral icterus. No injected conjunctiva Neck: Full ROM Chest/Lungs: Clear to auscultation bilaterally. No wheezing, rhonchi, or rales Cardiac: Regular rate, rhythm. No murmurs or rubs Abdomen/GI: Soft, nontender, nondistended. No rebound, guarding, or rigidity. Musculoskeletal: Full ROM Skin: Warm, dry, intact Neurologic: A/Ox3, no weakness, no sensory deficit, no abnormal gait, no coordination deficit Limitations: no limitations Course Vital Signs 09/20/18 09/20/18 17:39 19:45 Temperature 98.7 F 98.6 F Pulse Rate 91 73 Respiratory 23 18 Rate Blood Pressure 185/80 168/75 O2 Sat by Pulse 97 96 Oximetry Medical Decision Making - Medical Decision Making 67 year old male presenting with constipation. Initial exam the patient is awake, alert, no acute distress. VSS. Patient's laboratory workup was unremarkable. While in the department he had a large bowel movement and his symptoms completely resolved. The CT was canceled as the patient requested discharge. He was instructed to continue taking the dulcolax. He was given GI follow up and instructed to follow up with them and his doctor next week. No further emergent workup indicated. The patient was given return to ED instructions. They were instructed to follow up with their primary care provider. Stable for discharge at this time. - Lab Data Result diagrams: 09/20/18 19:08 09/20/18 19:08 Lab Results 09/20/18 09/20/18 Range/Units 19:08 19:08 WBC 6.6 (3.8-10.6) k/uL RBC 4.85 (4.30-5.90) m/uL Hgb 15.0 (13.0-17.5) gm/dL Hct 44.3 (39.0-53.0) % MCV 91.3 (80.0-100.0) fL MCH 31.0 (25.0-35.0) pg MCHC 34.0 (31.0-37.0) g/dL RDW 13.6 (11.5-15.5) % Plt Count 221 (150-450) k/uL Neutrophils % 68 % Lymphocytes % 22 % Monocytes % 4 % Eosinophils % 4 % Basophils % 1 % Neutrophils # 4.5 (1.3-7.7) k/uL Lymphocytes # 1.4 (1.0-4.8) k/uL Monocytes # 0.3 (0-1.0) k/uL Eosinophils # 0.3 (0-0.7) k/uL Basophils # 0.0 (0-0.2) k/uL Sodium 141 (137-145) mmol/L Potassium 4.4 (3.5-5.1) mmol/L Chloride 106 (98-107) mmol/L Carbon Dioxide 23 (22-30) mmol/L Anion Gap 12 mmol/L BUN 16 (9-20) mg/dL Creatinine 0.86 (0.66-1.25) mg/dL Est GFR (CKD-EPI)AfAm >90 (>60 ml/min/1.73 sqM) Est GFR (CKD-EPI)NonAf >90 (>60 ml/min/1.73 sqM) Glucose 155 H (74-99) mg/dL Calcium 9.4 (8.4-10.2) mg/dL Disposition Clinical Impression: Constipation Disposition: HOME SELF-CARE Condition: Good Instructions (If sedation given, give patient instructions): Constipation (ED) Is patient prescribed a controlled substance at d/c from ED?: No Referrals: Gilbert Perez MD [Primary Care Provider] - 1-2 days Paco Ashley MD [STAFF PHYSICIAN] - 1-2 days
[2018-09-20 19:18] LABS: Basophils % (A) 1 %; Eosinophils # (A) 0.3 k/uL (0-0.7); Eosinophils % (A) 4 %; HCT 44.3 % (39.0-53.0); Lymphocytes # (A) 1.4 k/uL (1.0-4.8); Lymphocytes % (A) 22 %; MCV 91.3 fL (80.0-100.0); Mean Platelet Volume 7.3; Monocytes # (A) 0.3 k/uL (0-1.0); Monocytes % (A) 4 %; Neutrophils # (A) 4.5 k/uL (1.3-7.7); Neutrophils % (A) 68 %; Platelet Count 221 k/uL (150-450); RBC 4.85 m/uL (4.30-5.90); RDW 13.6 % (11.5-15.5); WBC 6.6 k/uL (3.8-10.6)
[2018-09-20 19:32] LABS: Anion Gap 12 mmol/L; Blood Urea Nitrogen 16 mg/dL (9-20); Calcium 9.4 mg/dL (8.4-10.2); Carbon Dioxide 23 mmol/L (22-30); Chloride 106 mmol/L (98-107); Glucose 155 mg/dL (74-99); Potassium 4.4 mmol/L (3.5-5.1); Sodium 141 mmol/L (137-145)
[2018-09-20 20:07] VITALS: BP 168/75; PULSE 73; RESP 18; TEMP 98.6
== END 2018-09-20 20:05 | disposition home or self-care (01) ==
LOC: EC 17:31
DX: K59.00 Constipation, unspecified (principal); E11.9 Type 2 diabetes mellitus without complications; I10 Essential (primary) hypertension; G47.30 Sleep apnea, unspecified; Z88.5 Allergy status to narcotic agent; Z79.84 Long term (current) use of oral hypoglycemic drugs; Z79.899 Other long term (current) drug therapy; Z90.49 Acquired absence of other specified parts of digestive tract; Z98.84 Bariatric surgery status; Z99.89 Dependence on other enabling machines and devices; Z83.79 Family history of other diseases of the digestive system; Z53.29 Procedure and treatment not carried out because of patient's decision for other reasons
CPT/HCPCS: 36415; 80048; 85025; 99284

== ENCOUNTER 2022-04-19 03:29 | Emergency (ER) | payer MEDICARE ==
[2022-04-19 03:40] VITALS: RESP 18; TEMP 98.1
[2022-04-19] MEDS ORDERED: MORPHINE SULFATE 4 MG/ML SYRINGE IM STA (04:00)
--- NOTE | 2022-04-19 04:00 | ED ---
Fall HPI - General Chief Complaint: Fall Stated Complaint: Fall, back pain Time Seen by Provider: 04/19/22 03:34 Source: patient, RN notes reviewed, old records reviewed Mode of arrival: EMS Limitations: no limitations - History of Present Illness MD Complaint: fall, other (unable to ambulate) -: hour(s) Fall From: standing When Fall Occurred: 1-3 hours [employer] [facility] Fall Witnessed: no Place Fall Occurred: home Loss of Consciousness: none Prolonged Down Time?: no Symptoms Prior to Fall: none Location: head Severity: moderate Severity scale (1-10): 5 Quality: sharp, aching, tingling Context: tripped/slipped Associated Symptoms: denies - Related Data Home Medications Medication Instructions Recorded Confirmed Acetaminophen [Tylenol] 650 mg PO Q4H PRN 10/03/16 10/28/16 Lisinopril-Hctz 20-12.5 mg 1 tab PO DAILY 10/28/16 10/28/16 [Zestoretic 20-12.5] metFORMIN HCL ER [Glucophage XR] 500 mg PO BID 10/28/16 10/28/16 Previous Rx's Medication Instructions Recorded traMADol HCl [Ultram] 50 mg PO Q6H PRN #30 tab 10/23/16 Allergies Allergy/AdvReac Type Severity Reaction Status Date / Time hydromorphone [From Dilaudid] Allergy Nausea & Verified 04/19/22 03:40 Vomiting Review of Systems ROS Statement: Those systems with pertinent positive or pertinent negative responses have been documented in the HPI. ROS Other: All systems not noted in ROS Statement are negative. Past Medical History Past Medical History: Diabetes Mellitus, Hyperlipidemia, Hypertension, Osteoarthritis (OA), Prostate Disorder, Sleep Apnea/CPAP/BIPAP Additional Past Medical History / Comment(s): leg cramps History of Any Multi-Drug Resistant Organisms: None Reported Past Surgical History: Cholecystectomy Additional Past Surgical History / Comment(s): lap band, sleep apnea surgery UPPP Past Anesthesia/Blood Transfusion Reactions: No Reported Reaction, Postoperative Nausea & Vomiting (PONV) Past Psychological History: No Psychological Hx Reported Past Alcohol Use History: None Reported Past Drug Use History: None Reported - Past Family History Father Additional Family Medical History / Comment(s): Father dies at age 89 with CVA. Mother Additional Family Medical History / Comment(s): Mother at age 86 from Alzheimer dementia. Maternal grandfather had gallbladder problems. Brother(s) Additional Family Medical History / Comment(s): Patient has one brother with no major medical problems. Patient does not have any sisters. Patient does not have any children. General Exam General appearance: alert, in no apparent distress Head exam: Present: atraumatic, normocephalic, normal inspection Eye exam: Present: normal appearance, PERRL, EOMI. Absent: scleral icterus, conjunctival injection, periorbital swelling ENT exam: Present: normal exam, mucous membranes moist Neck exam: Present: normal inspection. Absent: tenderness, meningismus, lymphadenopathy Respiratory exam: Present: normal lung sounds bilaterally. Absent: respiratory distress, wheezes, rales, rhonchi, stridor Cardiovascular Exam: Present: regular rate, normal rhythm, normal heart sounds. Absent: systolic murmur, diastolic murmur, rubs, gallop, clicks GI/Abdominal exam: Present: soft, normal bowel sounds. Absent: distended, tenderness, guarding, rebound, rigid Extremities exam: Present: normal inspection, full ROM, normal capillary refill. Absent: tenderness, pedal edema, joint swelling, calf tenderness Back exam: Present: normal inspection Neurological exam: Present: alert, oriented X3, CN II-XII intact Psychiatric exam: Present: normal affect, normal mood Skin exam: Present: warm, dry, intact, normal color. Absent: rash Course Vital Signs 04/19/22 04/19/22 03:30 04:20 Temperature 98.1 F Pulse Rate 81 76 Respiratory 18 18 Rate Blood Pressure 136/80 130/77 O2 Sat by Pulse 98 94 L Oximetry - Reevaluation(s) Reevaluation #1: 04/19/22 05:14 medical record is reviewed Reevaluation #2: 04/19/22 05:15 A she has improved pain control here in the ER Reevaluation #3: 04/19/22 05:15 Patient informed of results and questions answered Medical Decision Making - Medical Decision Making 71 male to the ER for evaluation of falls falls were not significant strong mechanically the patient is of dad body habitus and had difficulty with ambulation after falls. Patient is able to amply here in the ER and can be discharged with pain control Disposition Clinical Impression: Fall, Back injury Disposition: HOME SELF-CARE Condition: Good Instructions (If sedation given, give patient instructions): Chronic Back Pain (DC), Back Pain (ED) Is patient prescribed a controlled substance at d/c from ED?: No Referrals: Gilbert Perez MD [Primary Care Provider] - 1-2 days Time of Disposition: 05:00
[2022-04-19] MEDS ORDERED: ONDANSETRON 4 MG TAB PO STA (04:24)
[2022-04-19] MEDS ORDERED: ACET/COD 300 MG/30 MG STARTER PACK 6 TAB BTL PO STA (05:13)
[2022-04-19 05:37] VITALS: BP 124/72; PULSE 77
== END 2022-04-19 05:37 | disposition home or self-care (01) ==
LOC: EC 03:29
DX: S39.92XA Unspecified injury of lower back, initial encounter (principal); E11.9 Type 2 diabetes mellitus without complications; I10 Essential (primary) hypertension; M19.90 Unspecified osteoarthritis, unspecified site; Z88.5 Allergy status to narcotic agent; Z79.84 Long term (current) use of oral hypoglycemic drugs; Z79.899 Other long term (current) drug therapy; W01.0XXA Fall on same level from slipping, tripping and stumbling without subsequent striking against object, initial encounter
CPT/HCPCS: 99284; 96372; J2270

== ENCOUNTER 2022-10-28 11:10 | Observation (INO) | payer MEDICARE ==
[2022-10-28 12:34] LABS: Basophils % (A) 0 %; Eosinophils # (A) 0.1 k/uL (0-0.7); Eosinophils % (A) 3 %; HCT 39.9 % (39.0-53.0); HGB 13.4 gm/dL (13.0-17.5); Lymphocytes # (A) 1.1 k/uL (1.0-4.8); Lymphocytes % (A) 22 %; MCH 30.6 pg (25.0-35.0); MCHC 33.7 g/dL (31.0-37.0); MCV 90.8 fL (80.0-100.0); Mean Platelet Volume 8.6; Monocytes # (A) 0.2 k/uL (0-1.0); Monocytes % (A) 5 %; Neutrophils # (A) 3.4 k/uL (1.3-7.7); Neutrophils % (A) 69 %; Platelet Count 124 k/uL (150-450); RBC 4.39 m/uL (4.30-5.90); RDW 12.7 % (11.5-15.5)
--- NOTE | 2022-10-28 12:35 | ED ---
General Adult HPI - General Chief complaint: Dizziness Stated complaint: Dizziness Time Seen by Provider: 10/28/22 12:02 Source: patient, EMS Mode of arrival: EMS Limitations: no limitations - History of Present Illness Initial comments: Dictation was produced using goOutMap dictation software. please excuse any grammatical, word or spelling errors. 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 States that the room was spinning. Patient was so symptomatic that he was able to ambulate. Patient decided to go home however symptoms have not improved. Patient denies any history of stroke. No numb similar paresthesias to the arms or legs. Denies any history of CVA. Denies any headache. The ROS documented in this emergency department record has been reviewed and confirmed by me. Those systems with pertinent positive or negative responses have been documented in the HPI. All other systems are other negative and/or n oncontributory. - Related Data Home Medications Medication Instructions Recorded Confirmed Acetaminophen [Tylenol] 650 mg PO Q4H PRN 10/03/16 10/28/16 Lisinopril-Hctz 20-12.5 mg 1 tab PO DAILY 10/28/16 10/28/16 [Zestoretic 20-12.5] metFORMIN HCL ER [Glucophage XR] 500 mg PO BID 10/28/16 10/28/16 Previous Rx's Medication Instructions Recorded traMADol HCl [Ultram] 50 mg PO Q6H PRN #30 tab 10/23/16 Allergies Allergy/AdvReac Type Severity Reaction Status Date / Time hydromorphone [From Dilaudid] Allergy Nausea & Verified 10/28/22 11:30 Vomiting Review of Systems ROS Statement: Those systems with pertinent positive or pertinent negative responses have been documented in the HPI. ROS Other: All systems not noted in ROS Statement are negative. Past Medical History Past Medical History: Diabetes Mellitus, Hyperlipidemia, Hypertension, Osteoarthritis (OA), Prostate Disorder, Sleep Apnea/CPAP/BIPAP Additional Past Medical History / Comment(s): leg cramps History of Any Multi-Drug Resistant Organisms: None Reported Past Surgical History: Cholecystectomy Additional Past Surgical History / Comment(s): lap band, sleep apnea surgery UPPP Past Anesthesia/Blood Transfusion Reactions: No Reported Reaction, Postoperative Nausea & Vomiting (PONV) Past Psychological History: No Psychological Hx Reported Past Alcohol Use History: None Reported Past Drug Use History: None Reported - Past Family History Father Additional Family Medical History / Comment(s): Father dies at age 89 with CVA. Mother Additional Family Medical History / Comment(s): Mother at age 86 from Alzheimer dementia. Maternal grandfather had gallbladder problems. Brother(s) Additional Family Medical History / Comment(s): Patient has one brother with no major medical problems. Patient does not have any sisters. Patient does not have any children. General Exam - General Exam Comments Initial Comments: PHYSICAL EXAM: General Impression: Alert and oriented x3, not in acute distress HEENT: Normocephalic atraumatic, extra-ocular movements intact, pupils equal and reactive to light bilaterally, mucous membranes moist. Cardiovascular: Heart regular rate and rhythm Chest: Able to complete full sentences, no retractions, no tachypnea Abdomen: abdomen soft, non-tender, non-distended, no organomegaly Musculoskeletal: Pulses present and equal in all extremities, no peripheral edema Motor: no focal deficits noted Neurological: CN II-XII grossly intact, no focal motor or sensory deficits noted Skin: Intact with no visualized rashes Psych: Normal affect and mood Limitations: no limitations Course Vital Signs 10/28/22 10/28/22 11:14 12:05 Temperature 98.5 F Pulse Rate 51 L 51 L Respiratory 20 18 Rate Blood Pressure 169/74 175/75 O2 Sat by Pulse 98 95 Oximetry Medical Decision Making - Medical Decision Making Was pt. sent in by a medical professional or institution (, PA, JUNIOR PROJECT MANAGER, urgent care, hospital, or group home...) When possible be specific @ -No Did you speak to anyone other than the patient for history (EMS, parent, family, police, friend...)? What history was obtained from this source @ -No Did you review nursing and triage notes (agree or disagree)? Why? @ -I reviewed and agree with nursing and triage notes Were old charts reviewed (outside hosp., previous admission, EMS record, old EKG, old radiological studies, urgent care reports/EKG's, group home records)? Report findings @ -No old charts were reviewed Differential Diagnosis (chest pain, altered mental status, abdominal pain women, abdominal pain men, vaginal bleeding, musculoskeletal, weakness, fever, dyspnea, syncope, headache, dizziness, GI bleed, back pain, seizure, CVA, palpatations, mental health)? @ -Differential Dizziness: Benign paroxysmal positional Vertigo, Menieres disease, otitis media, acoustic neuroma, vertebrobasilar insufficiency, cerebellar stroke, encephalitis, hypovolemic, arrhythmia, coronary artery syndrome, anemia, this is not meant to be an all-inclusive list EKG interpreted by me (3pts min.). @ -My EKG interpretation: Ventricular rate 52, sinus bradycardia,. 169, QRS 16 , QTC 422. No NE prolongation, no QTC prolongation, no ST or T-wave changes noted. Overall, this EKG is unremarkable X-rays interpreted by me (1pt min.). @ -None done CT interpreted by me (1pt min.). @ -None done U/S interpreted by me (1pt. min.). @ -None done What testing was considered but not performed or refused? (CT, X-rays, U/S, labs)? Why? @ -None What meds were considered but not given or refused? Why? @ -None Did you discuss the management of the patient with other professionals (professionals i.e. , PA, JUNIOR PROJECT MANAGER, lab, RT, psych nurse, social services, machine hose cutter, teacher, conservation officer, embedded case manager)? Give summary @ -Case discussed with Dr. Clark for admission Was smoking cessation discussed for >3mins.? @ -No Was critical care preformed (if so, how long)? @ -No Were there social determinants of health that impacted care today? How? (Homelessness, low income, unemployed, alcoholism, drug addiction, transportation, low edu. Level, literacy, decrease access to med. care, nursing home, rehab)? @ -No Was there de-escalation of care discussed even if they declined (Discuss DNR or withdrawal of care, Hospice)? DNR status @ -No What co-morbidities impacted this encounter? (DM, HTN, Smoking, COPD, CAD, Cancer, CVA, ARF, Chemo, Hep., AIDS, mental health diagnosis, sleep apnea, morbid obesity)? @ -None Was patient admitted / discharged? Hospital course, mention meds given and route, prescriptions, significant lab abnormalities, going to OR and other per tinent info. @ -72-year-old male presents emergency Department with vertigo. Vital signs stable. 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 Labs unremarkable. CT angiography shows no acute processes. Patient given aspirin will be admitted with consultation to neurology. Undiagnosed new problem with uncertain prognosis? @ -No Drug Therapy requiring intensive monitoring for toxicity (Heparin, Nitro, Insulin, Cardizem)? @ -No Were any procedures done? @ -No Diagnosis/symptom? Acute, or Chronic, or Acute on Chronic? Uncomplicated (without systemic symptoms) or Complicated (systemic symptoms)? @ -1. Vertigo Side effects of treatment? @ -No Exacerbation, Progression, or Severe Exacerbation? @ -No Poses a threat to life or bodily function? How? (Chest pain, USA, MD, pneumonia, PE, COPD, DKA, ARF, appy, cholecystitis, CVA, Diverticulitis, Homicidal, Suicidal, threat to staff... and all critical care pts) @ -yes - Lab Data Result diagrams: 10/28/22 12:27 10/28/22 12:27 Lab Results 10/28/22 10/28/22 10/28/22 Range/Units 12:27 12:27 12:27 WBC 5.0 (3.8-10.6) k/uL RBC 4.39 (4.30-5.90) m/uL Hgb 13.4 (13.0-17.5) gm/dL Hct 39.9 (39.0-53.0) % MCV 90.8 (80.0-100.0) fL MCH 30.6 (25.0-35.0) pg MCHC 33.7 (31.0-37.0) g/dL RDW 12.7 (11.5-15.5) % Plt Count 124 L (150-450) k/uL MPV 8.6 Neutrophils % 69 % Lymphocytes % 22 % Monocytes % 5 % Eosinophils % 3 % Basophils % 0 % Neutrophils # 3.4 (1.3-7.7) k/uL Lymphocytes # 1.1 (1.0-4.8) k/uL Monocytes # 0.2 (0-1.0) k/uL Eosinophils # 0.1 (0-0.7) k/uL Basophils # 0.0 (0-0.2) k/uL PT 11.0 (9.0-12.0) sec INR 1.1 (<1.2) APTT 25.0 (22.0-30.0) sec Sodium 135 L (137-145) mmol/L Potassium 4.4 (3.5-5.1) mmol/L Chloride 103 (98-107) mmol/L Carbon Dioxide 27 (22-30) mmol/L Anion Gap 5 mmol/L BUN 13 (9-20) mg/dL Creatinine 0.84 (0.66-1.25) mg/dL Est GFR (CKD-EPI)AfAm >90 (>60 ml/min/1.73 sqM) Est GFR (CKD-EPI)NonAf 88 (>60 ml/min/1.73 sqM) Glucose 102 H (74-99) mg/dL Calcium 8.4 (8.4-10.2) mg/dL Total Bilirubin 1.2 (0.2-1.3) mg/dL AST 25 (17-59) U/L ALT 13 (4-49) U/L Alkaline Phosphatase 67 (38-126) U/L Total Protein 6.5 (6.3-8.2) g/dL Albumin 3.8 (3.5-5.0) g/dL Disposition Clinical Impression: Vertigo Disposition: ADMITTED IP TO THIS [facility] Condition: Fair Referrals: Gilbert Perez MD [Primary Care Provider] - 1-2 days Decision Time: 15:00
[2022-10-28 12:45] LABS: ALT 13 U/L (4-49); African American GFR (CKD) >90 (>60 ml/min/1.73 sqM); Albumin 3.8 g/dL (3.5-5.0); Anion Gap 5 mmol/L; Blood Urea Nitrogen 13 mg/dL (9-20); Calcium 8.4 mg/dL (8.4-10.2); Carbon Dioxide 27 mmol/L (22-30); Chloride 103 mmol/L (98-107); Glucose 102 mg/dL (74-99); Non-African American GFR(CKD) 88 (>60 ml/min/1.73 sqM); Sodium 135 mmol/L (137-145); Total Bilirubin 1.2 mg/dL (0.2-1.3); Total Protein 6.5 g/dL (6.3-8.2)
[2022-10-28 12:46] LABS: AST 25 U/L (17-59); Alkaline Phosphatase 67 U/L (38-126); Potassium 4.4 mmol/L (3.5-5.1)
[2022-10-28 12:52] LABS: INR 1.1 (<1.2)
[2022-10-28] MEDS ORDERED: METOCLOPRAMIDE 5 MG/ML 2 ML VIAL IVP STA (13:16)
--- NOTE | 2022-10-28 14:23 | CT ---
EXAMINATION TYPE: CT angio head neck DATE OF EXAM: 10/28/2022 COMPARISON: None HISTORY: dizzy CT DLP: 1862.[address] of the brain was performed. The ventricles, basal cisterns and sulci overlying the cerebral convexities demonstrate mild enlargem ent. There is no evidence for intracranial hemorrhage or sulcal effacement. There is decreased attenuation about the periventricular white matter and deep white matter of both c erebral hemispheres, compatible with chronic small vessel ischemia. Differential diagnosis does inclu de demyelination. No mass effects are seen.No midline shift. Osseous calvarium is intact. If symptoms persist consider MRI. IMPRESSION: 1. Age related atrophic and chronic small vessel ischemic change without acute intracranial process s een at this time. EXAMINATION TYPE: CT angio head neck DATE OF EXAM: 10/28/2022 COMPARISON: none HISTORY: dizzy CT DLP: 1862.1 mGycm CONTRAST: Performed with IV Contrast, patient injected with 65 mL of Isovue 370. Combination Contrast CTA cervical carotids and [place] CTA cervical carotids with 3-D recons truction Contrast CTA of the cervical carotids was performed 3-D reconstruction imaging obtained at a separate workstation. Right carotid system: Mild plaque is seen of the right common carotid artery. There is moderate plaq ue also noted at the carotid bulb and proximal ICA. Estimated diameter reduction is 80-90%. ECA is patent. Right vertebral artery appears unremarkable. Left carotid system: Mild plaque is seen of the left common carotid artery. There is moderate plaque also noted at the carotid bulb and proximal ICA. Estimated diameter reduction of 50-60%. ECA is pa tent. Left vertebral artery appears unremarkable. IMPRESSION: 1. Estimated diameter reduction right ICA 80-90%. 2. Estimated diameter reduction left ICA 50-60% CTA [place] with 3-D reconstruction Contrast CTA of the [place] was performed 3-D reconstruction imaging obtained at a separate workstation. Vertebrobasilar system as well as intracranial portions of the internal carotid arteries and their ma [place] tributaries are patent. Diminutive proximal left MCA. I do not see evidence for sizable aneurysm or vascular malformation. Please note MRI provides greater sensitivity and specificity. Visualized brain appears grossly unremarkable. IMPRESSION: 1. Diminutive proximal left MCA. NASCET criteria was used in interpretation of this exam?
[2022-10-28] MEDS ORDERED: ASPIRIN 81 MG PO STA (14:31)
[2022-10-28] MEDS ORDERED: NALOXONE 0.4 MG/ML 1 ML VIAL IV PRN (15:13)
[2022-10-28] MEDS ORDERED: SODIUM CHLORIDE 0.9% 1,000 ML IV SCH (15:15)
[2022-10-28 17:22] LABS: Glucose,Whole Blood 109 mg/dL (70-110)
--- NOTE | 2022-10-28 17:36 | HP ---
HISTORY AND PHYSICAL CHIEF COMPLAINT: Dizziness. HISTORY OF PRESENT ILLNESS: This is a 72-year-old gentleman with a past medical history of diabetes mellitus, hypertension, hyperlipidemia, and multiple medical issues, who had a fall recently, but currently, the patient is complaining of dizziness and woozy and vertiginous feeling, especially when sitting up or walking. The patient was admitted for further evaluation and treatment. CTA was negative. There is no history of any fever, rigor, or chills. PAST MEDICAL HISTORY: Reviewed includes diabetes mellitus and hypertension. Rest of the history and rest of the chart are also reviewed. HOME MEDICATIONS: Reviewed include Ultram. Doses and rest of the medications are reviewed. ALLERGIES: Dilaudid. FAMILY HISTORY: History of CVA in the family. SOCIAL HISTORY: No history of smoking or alcohol intake. REVIEW OF SYSTEMS: Fourteen-point review is negative except as mentioned earlier. PHYSICAL EXAMINATION: VITAL SIGNS: Pulse 51, blood pressure 169/74, respirations 20. HEENT: Conjunctivae are normal. NECK: No jugular venous distention. CARDIOVASCULAR: S1 and S2 muffled. RESPIRATORY: Breath sounds diminished at the bases. ABDOMEN: Soft and nontender. LEGS: No edema. No cyanosis. NERVOUS SYSTEM: No focal deficits. SKIN: No ulcers or rashes. JOINTS: No active deforming arthropathy. LABORATORY DATA: Reviewed. ASSESSMENT: 1. Dizziness. Possible benign paroxysmal positional vertigo. Possible transient ischemic attack. 2. Mild thrombocytopenia. 3. Mild hyponatremia. 4. Diabetes mellitus, type 2. 5. Hypertension. 6. Hyperlipidemia. 7. Multiple medical issues. RECOMMENDATIONS AND DISCUSSION: In this 72-year-old gentleman presented with multiple complex medical issues, at this time, I recommend to continue the current medications and continue the symptomatic treatment. Resume the home medications. Orthostatic vitals. Neurology consultation. Complete neurovascular workup and symptomatic treatment. Prognosis is guarded. Further recommendations to follow. The TIA also is a possibility. MMODL / IJN: [id number] /
[2022-10-28] MEDS: MECLIZINE 12.5 MG TAB PO SCH ×2 (17:56→20:26)
[2022-10-28] MEDS: HEPARIN SODIUM,PORCINE/PF 5,000 UNIT/0.5 ML SYRINGE SQ SCH (20:25)
[2022-10-28 20:53] LABS: Glucose,Whole Blood 145 mg/dL (70-110)
[2022-10-29 06:10] LABS: Glucose,Whole Blood 104 mg/dL (70-110)
[2022-10-29 07:22] VITALS: BP 137/60; PULSE 63; RESP 16; TEMP 97.8
[2022-10-29] MEDS: HEPARIN SODIUM,PORCINE/PF 5,000 UNIT/0.5 ML SYRINGE SQ SCH (08:29)
[2022-10-29] MEDS: MECLIZINE 12.5 MG TAB PO SCH (08:29)
--- NOTE | 2022-10-29 09:44 | P.CNNES ---
History of Present Illness Consult date: 10/29/22 Requesting physician: Uziel Becerra Reason for Consult: vertigo History of Present Illness: This is a 72-year-old gentleman who presented to the emergency department the because of dizziness. Patient stated that yesterday he woke up around 4 inch close to 4:30 AM and felt off by 5:00 is feeling dizzy and later during the day he felt that he was so dizzy he could not get out of the chair. He felt nauseous. Denied any ringing in the ears, any difficulty swallowing, difficulty getting his words out, any focal weakness. Denies any visual disturbance. Denies any head trauma. He feels today he is currently back to baseline and walking without any issues. Denies any further dizziness. She denies any history of stroke or TIAs in the past. Some other workup during this hospital visit consisted of: Orthostatic vitals is supine 177/91 is a blood pressure with a heart rate of 64, sitting is 173/78 heart rate 54 and standing is 147/79 with a heart rate is 72. Patient had a repeated orthostatic blood pressure again the blood pressure diastolic drop more than 10 from sitting to standing. CT of the head is reported as age-related atrophy and chronic small vessel ischemic changes without acute intracranial process seen at this time. I personally reviewed the CT and I agree with the findings. CT angiography of the head and neck is reported as turn down attendant diameter reduction right ICA is 80-90% while left is 50-60%. As well as diminutive proximal left MCA. Review of Systems Review of system: The 12 point system was reviewed and apparent positive and negative per HPI. Past Medical History Past Medical History: Diabetes Mellitus, Hyperlipidemia, Hypertension, Osteoarthritis (OA), Prostate Disorder, Sleep Apnea/CPAP/BIPAP Additional Past Medical History / Comment(s): leg cramps History of Any Multi-Drug Resistant Organisms: None Reported Past Surgical History: Cholecystectomy Additional Past Surgical History / Comment(s): lap band 80s, sleep apnea surgery UPPP 90s Past Anesthesia/Blood Transfusion Reactions: No Reported Reaction, Postoperative Nausea & Vomiting (PONV) Past Psychological History: No Psychological Hx Reported Smoking Status: Never smoker Past Alcohol Use History: None Reported Past Drug Use History: None Reported - Past Family History Father Additional Family Medical History / Comment(s): Father dies at age 89 with CVA. Mother Additional Family Medical History / Comment(s): Mother at age 86 from Alzheimer dementia. Maternal grandfather had gallbladder problems. Brother(s) Family Medical History: Dementia Additional Family Medical History / Comment(s): Patient has one brother with no major medical problems. Patient does not have any sisters. Patient does not have any children. Medications and Allergies Home Medications Medication Instructions Recorded Confirmed Type Meclizine [Antivert] 12.5 mg PO TID PRN #30 tab 10/29/22 Rx Allergies Allergy/AdvReac Type Severity Reaction Status Date / Time hydromorphone [From Dilaudid] Allergy Nausea & Verified 10/28/22 16:07 Vomiting Physical Examination - Vital Signs Vital Signs: Vital Signs Temp Pulse Pulse Pulse Pulse Pulse Resp 10/29/22 06:40 97.8 F 63 16 10/29/22 02:00 98.1 F 53 L 14 10/28/22 20:00 97.8 F 65 18 10/28/22 17:30 97.8 F 54 L 72 64 18 10/28/22 15:53 54 L 72 64 10/28/22 15:28 98.1 F 66 20 10/28/22 12:05 51 L 18 10/28/22 11:14 98.5 F 51 L 20 BP BP BP BP BP Pulse Ox 10/29/22 06:40 137/60 98 10/29/22 02:00 142/71 96 10/28/22 20:00 163/72 95 10/28/22 17:30 173/78 147/79 177/97 95 10/28/22 15:53 173/78 147/79 177/91 10/28/22 15:28 160/90 98 10/28/22 12:05 175/75 95 10/28/22 11:14 169/74 98 Intake and Output 10/28/22 10/29/22 10/29/22 22:59 06:59 14:59 Other: # Voids 1 1 Weight 154.221 kg GENERAL: The patient is an obese gentleman sitting on a recliner chair and is not in acute distress. NEUROLOGICAL: Higher mental function: The patient is awake, alert, oriented to self, place and time. Patient is following commands. No aphasia and no neglect. Cranial nerves: The pupils are round, equal and reactive to light and accommodation. Visual phelps are full to confrontation throughout. Extraocular movement is intact no nystagmus is noted. Facial sensation is normal to touch throughout. The facial strength is normal throughout. Hearing is normal bilaterally to hand rub. Tongue is midline and moved [id number] without any difficulty. No dysarthria is noted. Shoulder shrug is normal bilaterally. Motor: Gait: No swaying and not need assistance and seems normal. The strength is 5 over 5 throughout. Normal tone and bulk. Cerebellum: Normal finger to nose heel to cantu bilaterally. Sensation: Sensation is normal to touch throughout. Reflexes (right/left): 1+ Plantars are downgoing bilaterally. Results - Laboratory Findings CBC and BMP: 10/28/22 12:27 10/28/22 12:27 Abnormal Lab Findings: Abnormal Labs 10/28/22 10/28/22 10/28/22 12: 12: 20:51 Plt Count 124 L Sodium 135 L Glucose 102 H POC Glucose (mg/dL) 145 H Assessment and Plan Assessment: Acute vertigo: Seems likely due to a positive orthostatic (had it twice performed and decrease in diastolic >10)--- vertigo has resolved Positive orthostatic hypotension Asymptomatic right ICA stenosis of 80-90% on CTA Left ICA stenosis of 50-60% on the left on CTA Diabetes mellitus Hypertension Hyperlipidemia Sleep apnea Morbid obesity Plan: Regarding the positive orthostatics which was done that twice and was positive since diastolic decreased more than 10 at 2 different times from the supine to sitting. Recommend compression stocking and that is still having symptoms recommend salt tablets or midodrine. Defer the management to the primary team According to the patient's nurse patient is refusing meclizine. Regarding the patient's carotid stenosis seen on the CTA I consulted vascular surgery team and I ordered carotid duplex. I placed the patient on aspirin 81 mg daily as well as Lipitor for milligrams daily at bedtime. We'll defer the rest of the medical management to primary team The patient is requesting to leave since he feels back to baseline. The plan discussed with the patient and his nurse Thank you for the consultation. Time with Patient: Greater than 30
[2022-10-29] MEDS ORDERED: ASPIRIN 81 MG PO SCH (09:45)
--- NOTE | 2022-10-29 10:49 | P.GSCN ---
History of Present Illness Consult date: 10/29/22 Reason for Consult: Carotid stenosis Requesting physician: Reid Morris History of present illness: This 72-year-old male who presented to the emergency department yesterday with complaints of dizziness. Patient states that started around 4 AM he went to get up around 5 AM and he felt very dizzy felt like everything was spinning. He denied any focal deficits such as vision loss, extremity weakness, difficulty speaking, or facial drooping. He has a past medical history including diabetes mellitus, hyperlipidemia, hypertension, osteoarthritis, BPH, sleep apnea with CPAP, and morbid obesity. He denies being a smoker or a former smoker. Part of his workup included CT angiogram head and neck with head reportedly age-related atrophic and chronic small vessel ischemic changes without acute intracranial process seen. Neck reported estimated diameter reduction right ICA 80-90% and left ICA 50-60%. Patient denies any previous knowledge of any carotid stenosis. Vascular surgery was consulted for the above. Patient currently denies any shortness of breath, chest pain, focal deficits, and dizziness has resolved. Patient was noted to have orthostatic hypotension while here in the hospital. Neurology believes symptoms likely related to the orthostatic hypotension. Carotid duplex ordered, currently there at the bedside to perform test. Review of Systems A 14 point review systems was completed all pertinent positives and negatives as stated in the HPI. Past Medical History Past Medical History: Diabetes Mellitus, Hyperlipidemia, Hypertension, Osteoarthritis (OA), Prostate Disorder, Sleep Apnea/CPAP/BIPAP Additional Past Medical History / Comment(s): leg cramps History of Any Multi-Drug Resistant Organisms: None Reported Past Surgical History: Cholecystectomy Additional Past Surgical History / Comment(s): lap band 80s, sleep apnea surgery UPPP 90s Past Anesthesia/Blood Transfusion Reactions: No Reported Reaction, Postoperative Nausea & Vomiting (PONV) Past Psychological History: No Psychological Hx Reported Smoking Status: Never smoker Past Alcohol Use History: None Reported Past Drug Use History: None Reported - Past Family History Father Additional Family Medical History / Comment(s): Father dies at age 89 with CVA. Mother Additional Family Medical History / Comment(s): Mother at age 86 from Alzheimer dementia. Maternal grandfather had gallbladder problems. Brother(s) Family Medical History: Dementia Additional Family Medical History / Comment(s): Patient has one brother with no major medical problems. Patient does not have any sisters. Patient does not have any children. Medications and Allergies Home Medications Medication Instructions Recorded Confirmed Type Meclizine [Antivert] 12.5 mg PO TID PRN #30 tab 10/29/22 Rx Allergies Allergy/AdvReac Type Severity Reaction Status Date / Time hydromorphone [From Dilaudid] Allergy Nausea & Verified 10/28/22 16:07 Vomiting Surgical - Exam Vital Signs Temp Pulse Resp BP Pulse Ox 98.5 F 51 L 20 169/74 98 10/28/22 11:14 10/28/22 11:14 10/28/22 11:14 10/28/22 11:14 10/28/22 11:14 General appearance: The patient is alert, oriented, appears in no acute distress. Morbidly obese. HET: Head is normocephalic and atraumatic. Pupils are equal and reactive. Neck: Supple. No audible carotid bruit. Heart: Irregular. Lungs: Equal expansion, normal respiratory effort. Abdomen: Soft, nontender, nondistended. Extremities: Normal skin color and turgor. Neurological: No focal deficits. Strength and sensation are grossly intact. Results - Labs 10/28/22 12:27 10/28/22 12:27 Abnormal Lab Results - Last 24 Hours (Table) 10/28/22 10/28/22 10/28/22 Range/Units 12:27 12:27 20:51 Plt Count 124 L (150-450) k/uL Sodium 135 L (137-145) mmol/L Glucose 102 H (74-99) mg/dL POC Glucose (mg/dL) 145 H (70-110) mg/dL Diabetes panel 10/28/22 Range/Units 12:27 Sodium 135 L (137-145) mmol/L Potassium 4.4 (3.5-5.1) mmol/L Chloride 103 (98-107) mmol/L Carbon Dioxide 27 (22-30) mmol/L BUN 13 (9-20) mg/dL Creatinine 0.84 (0.66-1.25) mg/dL Glucose 102 H (74-99) mg/dL Calcium 8.4 (8.4-10.2) mg/dL AST 25 (17-59) U/L ALT 13 (4-49) U/L Alkaline Phosphatase 67 (38-126) U/L Total Protein 6.5 (6.3-8.2) g/dL Albumin 3.8 (3.5-5.0) g/dL Calcium panel 10/28/22 Range/Units 12:27 Calcium 8.4 (8.4-10.2) mg/dL Albumin 3.8 (3.5-5.0) g/dL Pituitary panel 10/28/22 Range/Units 12:27 Sodium 135 L (137-145) mmol/L Potassium 4.4 (3.5-5.1) mmol/L Chloride 103 (98-107) mmol/L Carbon Dioxide 27 (22-30) mmol/L BUN 13 (9-20) mg/dL Creatinine 0.84 (0.66-1.25) mg/dL Glucose 102 H (74-99) mg/dL Calcium 8.4 (8.4-10.2) mg/dL Adrenal panel 10/28/22 Range/Units 12:27 Sodium 135 L (137-145) mmol/L Potassium 4.4 (3.5-5.1) mmol/L Chloride 103 (98-107) mmol/L Carbon Dioxide 27 (22-30) mmol/L BUN 13 (9-20) mg/dL Creatinine 0.84 (0.66-1.25) mg/dL Glucose 102 H (74-99) mg/dL Calcium 8.4 (8.4-10.2) mg/dL Total Bilirubin 1.2 (0.2-1.3) mg/dL AST 25 (17-59) U/L ALT 13 (4-49) U/L Alkaline Phosphatase 67 (38-126) U/L Total Protein 6.5 (6.3-8.2) g/dL Albumin 3.8 (3.5-5.0) g/dL Assessment and Plan Assessment: 1. Vertigo possibly related to orthostatic hypotension 2. Asymptomatic right ICA stenosis 80-90% per CTA 3. Left ICA stenosis 50-60% per CTA 4. Diabetes mellitus 5. Hypertension and hyperlipidemia 6. Morbid obesity 7. Sleep apnea Plan: 1. Continue aspirin 81 mg daily 2. Continue atorvastatin 40 mg at bedtime 3. Agree with carotid duplex, results currently pending 4. Symptoms unlikely related to carotid stenosis. Patient may be cleared by vascular surgery for discharge. Follow-up in 1-[address] Combs. Thank you for this consultation. The impression and plan of care has been dictated as directed. Dr. Duran I performed a history and examination of this patient, discussed the same with the dictator. I agree with the dictator's note ,documented as a scribe. Any additional findings or plans will be noted.
--- NOTE | 2022-10-29 12:06 | US ---
EXAMINATION TYPE: US carotid duplex BILAT DATE OF EXAM: 10/29/2022 COMPARISON: CLINICAL INDICATION: Male, 72 years old with history of carotid stenosis on cta; Abnormal CTA. Dizzi ness yesterday. Nonsmoker per patient. TECHNIQUE: Carotid duplex ultrasound examination. Indirect Doppler criteria was utilized. 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 Elevated bilateral ECA and right ICA velocities. Pl aque seen in bulbs. Significant right ICA stenosis. IMPRESSION: Atheromatous plaquing in the bilateral carotid bifurcations, contributing to severe right internal ca rotid artery stenosis, greater than 70%. Correlate with patient's symptoms. Mild, less than 50%, na rrowing of the left internal carotid artery is present. Criteria for Assigning % of Stenosis / Diameter reduction (Estimation based on the indirect measurements of the internal carotid artery velocities (ICA PSV). 1. Normal (no stenosis)=ICA PSV < 125 cm/s: ratio < 2.0: ICA EDV<40 cm/s. 2. Less than 50% stenosis=ICA PSV < 125 cm/s: ratio < 2.0: ICA EDV<40 cm/s. 3. 50 to 69% stenosis=ICA PSV of 125 to 230 cm/s: ration 2.0 ? 4.0: ICA EDV 40-100 cm/s. 4. Greater than 70% stenosis to near occlusion= ICA PSV > 230 cm/s: ratio > 4.0: ICA EDV > 100 cm/s. 5. Near occlusion= ICA PSV velocities may be low or undetectable: variable ratio and ICA EDV. 6. Total occlusion=unable to detect flow.
--- NOTE | 2022-10-29 12:57 | DS ---
DISCHARGE SUMMARY FINAL DIAGNOSES: 1. Dizziness, possible benign paroxysmal positional vertigo. 2. Bilateral carotid artery stenosis, right more than left. 3. Thrombocytopenia. 4. Mild hyponatremia. 5. Diabetes mellitus type 2. 6. Hypertension. 7. Hyperlipidemia. DISCHARGE DISPOSITION: The patient will be discharged in stable condition and guarded prognosis. HISTORY OF PRESENT ILLNESS: This is a 72-year-old gentleman with a past medical history of multiple medical problems, admitted with dizziness. The patient has improved significantly. The CT angio showed carotid stenosis. The patient was seen by Vascular Surgery and Neurology and recommended outpatient followup. PHYSICAL EXAMINATION: VITAL SIGNS: Stable. CARDIOVASCULAR: S1, S2. ABDOMEN: Soft. NERVOUS SYSTEM: No focal deficits DISCHARGE MEDICATIONS: 1. Antivert p.r.n. 2. Ecotrin 81 daily. FOLLOWUP: With Dr. Perez, follow up with , and follow up with Dr. Mcclain gas recommended. CBC and BMP outpatient. MMODL / IJN: [id number] / MTDD
[2022-10-29] MEDS ORDERED: ATORVASTATIN 40 MG TAB PO SCH (21:00)
== END 2022-10-29 11:35 | disposition home or self-care (01) ==
LOC: EC 11:10 → 6NMEDSUR 15:21
PROVIDERS: ADMIT Hospitalist; ATTEND Hospitalist
DX: R42 Dizziness and giddiness (principal); I65.23 Occlusion and stenosis of bilateral carotid arteries; D69.6 Thrombocytopenia, unspecified; E87.1 Hypo-osmolality and hyponatremia; E78.5 Hyperlipidemia, unspecified; I10 Essential (primary) hypertension; E66.01 Morbid (severe) obesity due to excess calories; N40.0 Benign prostatic hyperplasia without lower urinary tract symptoms; Z79.84 Long term (current) use of oral hypoglycemic drugs; Z79.899 Other long term (current) drug therapy; Z88.6 Allergy status to analgesic agent; Z90.49 Acquired absence of other specified parts of digestive tract; Z98.84 Bariatric surgery status; Z82.3 Family history of stroke; Z82.0 Family history of epilepsy and other diseases of the nervous system; Z63.4 Disappearance and death of family member; Z68.42 Body mass index [BMI] 45.0-49.9, adult
CPT/HCPCS: 96374; 99285; 36415; 93005; 80053; 85025; 85610; 85730; 93880; 70496; 70498; G0378 ×2; J2765; Q9967

== ENCOUNTER 2023-07-08 11:38 | Inpatient (IN) | payer MEDICARE ==
[2023-07-08 13:21] LABS: Basophils % (A) 1 %; Eosinophils # (A) 0.1 k/uL (0-0.7); Eosinophils % (A) 1 %; HCT 44.6 % (39.0-53.0); HGB 15.5 gm/dL (13.0-17.5); Lymphocytes # (A) 0.4 k/uL (1.0-4.8); Lymphocytes % (A) 5 %; MCH 32.3 pg (25.0-35.0); MCHC 34.7 g/dL (31.0-37.0); Mean Platelet Volume 7.6; Monocytes # (A) 0.3 k/uL (0-1.0); Monocytes % (A) 5 %; Neutrophils # (A) 6.3 k/uL (1.3-7.7); Neutrophils % (A) 88 %; Platelet Count 117 k/uL (150-450); RDW 12.5 % (11.5-15.5); WBC 7.2 k/uL (3.8-10.6)
[2023-07-08 13:25] LABS: ALT 12 U/L (4-49); AST 25 U/L (17-59); Acetaminophen <10.0 ug/mL; African American GFR (CKD) 81 (>60 ml/min/1.73 sqM); Albumin 4.5 g/dL (3.5-5.0); Alcohol <10 mg/dL; Alkaline Phosphatase 79 U/L (38-126); Anion Gap 11 mmol/L; Blood Urea Nitrogen 15 mg/dL (9-20); Carbon Dioxide 24 mmol/L (22-30); Chloride 103 mmol/L (98-107); Glucose 119 mg/dL (74-99); Non-African American GFR(CKD) 70 (>60 ml/min/1.73 sqM); Potassium 4.9 mmol/L (3.5-5.1); Salicylate <1.0 mg/dL; Sodium 138 mmol/L (137-145); Total Bilirubin 1.4 mg/dL (0.2-1.3); Total Protein 7.2 g/dL (6.3-8.2)
[2023-07-08 13:26] LABS: Appearance,Urine Cloudy (Clear); Bacteria,Urine Many /hpf; Bilirubin,Urine Negative (Negative); Blood,Urine Small (Negative); Color,Urine Light Yellow; Glucose,Urine (UA) Negative (Negative); Ketones,Urine Negative (Negative); Leukocyte Esterase,Urine Large (Negative); Mucus,Urine Rare /hpf; Nitrite,Urine Negative (Negative); Protein,Urine 1+ (Negative); RBC,Urine 6 /hpf (0-5); Specific Gravity,Urine 1.016 (1.001-1.035); Squamous Epithelial Cell,Urine <1 /hpf (0-4); Urobilinogen,Urine <2.0 mg/dL (<2.0); WBC,Urine >182 /hpf (0-5)
[2023-07-08 13:29] LABS: INR 1.1 (<1.2); Partial Thromboplastin Time 28.2 sec (22.0-30.0); Prothrombin Time 11.4 sec (10.0-12.5)
[2023-07-08 13:30] LABS: Amphetamine Screen,Urine Not Detected (NotDetected); Benzodiazepines Screen,Urine Not Detected (NotDetected); Cocaine Screen,Urine Not Detected (NotDetected); Methadone Screen, Urine Not Detected (NotDetected); Opiate Screen,Urine Not Detected (NotDetected); Phencyclidine Screen,Urine Not Detected (NotDetected); Tricyclic Antidepressant,Urine Not Detected (NotDetected); Urn Cannabinoid Scrn Not Detected (NotDetected)
[2023-07-08 13:31] LABS: Barbiturate Screen,Urine Not Detected (NotDetected); Oxycodone Screen, Urine Not Detected (NotDetected)
--- NOTE | 2023-07-08 13:45 | CT ---
EXAMINATION TYPE: CT brain wo con DATE OF EXAM: 07/08/2023 COMPARISON: 10/28/2022. HISTORY: Lightheaded. CT DLP: 1153.4 mGycm Automated exposure control for dose reduction was used. FINDINGS: There is no acute intracranial hemorrhage, mass, mass effect, midline shift, extra-axial fluid collec tion or hydrocephalus. There is mild hypoattenuation in the periventricular white matter which likely is due to chronic isch emic small vessel change. The gan-white distinction is otherwise intact without evidence of an acute major vessel infarct. The visualized paranasal sinuses and mastoid air cells are clear. IMPRESSION: NO ACUTE INTRACRANIAL PROCESS.
[2023-07-08] MEDS: SODIUM CHLORIDE 0.9% 1,000 ML IV ONE (13:46)
[2023-07-08] MEDS: ONDANSETRON 4 MG/2 ML VIAL IVP STA (13:46)
--- NOTE | 2023-07-08 14:10 | ED ---
General Adult HPI <Shavon Carmona P - Last Filed: 07/08/23 17:53> - General Source: patient, EMS, RN notes reviewed, old records reviewed Mode of arrival: EMS Limitations: physical limitation <Prasanna Lerner - Last Filed: 07/09/23 12:26> - General Chief complaint: Altered Mental Status Stated complaint: Petition Time Seen by Provider: 07/08/23 12:08 - History of Present Illness Initial comments: Patient is a 72-year-old male who presents emergency department for psychiatric evaluation. Also had a slight episode of confusion as he could not remember the password login for his [employer]. Was doing a [employer] Lifestream with a fake gun. Patient denies being suicidal but states it was for a joke. No history of suicidal attempts. Denies any homicidal ideations, attempts. Denies any hallucinations. Has no other acute complaints at this time. States he does feel little anxious and states he becomes nauseous when he is anxious. Presents for further evaluation at this time. Denies chest pain, shortness of breath, abdominal pain. (Prasanna Lerner) - Related Data Previous Rx's Medication Instructions Recorded Ciprofloxacin HCl [Cipro] 500 mg PO Q12HR 7 Days #14 tab 07/08/23 Allergies Allergy/AdvReac Type Severity Reaction Status Date / Time hydromorphone [From Dilaudid] Allergy Nausea & Verified 07/08/23 22:54 Vomiting Review of Systems ROS Other: All systems not noted in ROS Statement are negative. <Shavon Carmona - Last Filed: 07/08/23 17:53> ROS Other: All systems not noted in ROS Statement are negative. <Prasanna Lerner - Last Filed: 07/09/23 12:26> ROS Statement: Those systems with pertinent positive or pertinent negative responses have been documented in the HPI. Review of Systems: CONST: Denies fever EYES: Denies blurry vision ENT: Denies nasal congestion C/V: Denies Chest pain RESP: Denies shortness of breath GI: Denies abdominal pain : Denies dysuria SKIN: Denies rash. MSK: Denies joint pain. NEURO: Denies headache (Prasanna Lerner) Past Medical History Past Medical History: Diabetes Mellitus, Hyperlipidemia, Hypertension, Osteoarthritis (OA), Prostate Disorder, Sleep Apnea/CPAP/BIPAP Additional Past Medical History / Comment(s): leg cramps History of Any Multi-Drug Resistant Organisms: None Reported Past Surgical History: Cholecystectomy Additional Past Surgical History / Comment(s): lap band 80s, sleep apnea surgery UPPP 90s Past Anesthesia/Blood Transfusion Reactions: No Reported Reaction, Postoperative Nausea & Vomiting (PONV) Past Psychological History: No Psychological Hx Reported Smoking Status: Never smoker Past Alcohol Use History: None Reported Past Drug Use History: None Reported - Past Family History Father Additional Family Medical History / Comment(s): Father dies at age 89 with CVA. Mother Family Medical History: Dementia Additional Family Medical History / Comment(s): Mother at age 86 from Alzheimer dementia. Maternal grandfather had gallbladder problems. Brother(s) Family Medical History: Dementia Additional Family Medical History / Comment(s): Patient has one brother with no major medical problems. Patient does not have any sisters. Patient does not have any children. <Prasanna Lerner - Last Filed: 07/09/23 12:26> General Exam Limitations: physical limitation <Prasanna Lerner - Last Filed: 07/09/23 12:26> - General Exam Comments Initial Comments: General: Appears in no acute distress. HEAD: Normal with no signs of head trauma. EYES: PERRLA, EOMI, conjunctiva normal, no discharge. Pulls 3 mm and equal bilaterally. ENT: Hearing grossly intact, normal oropharynx. RESPIRATORY: Clear breath sounds bilaterally. No wheezes, rales, or rhonchi. C/V: Regular rate and rhythm. S1 and S2 auscultated, no edema, peripheral pulses 2+ and intact throughout ABD: Abd is soft, nontender, nondistended EXT: Normal range of motion, no obvious deformity SKIN: No rashes or lesions observed on exposed skin. NEURO: Alert and oriented x 4. Cranial nerves II-XII intact. No focal sensory or strength deficits. Ambulates with a cane at baseline. (Prasanna Lerner) Course Vital Signs 07/08/23 07/08/23 07/08/23 11:54 18:45 21:00 Temperature 100 F H 99.7 F H 99.9 F H Pulse Rate 115 H Pulse Rate [ 87 120 H Pulse Oximetery ] Respiratory 16 18 19 Rate Blood Pressure 185/114 Blood Pressure 157/83 210/101 [Left Arm] O2 Sat by Pulse 93 L 95 95 Oximetry 07/08/23 07/08/23 07/08/23 22:00 23:40 23:56 Temperature 101.0 F H 98.7 F Pulse Rate 115 H 114 H 112 H Pulse Rate [ Pulse Oximetery ] Respiratory 18 18 18 Rate Blood Pressure 171/109 111/59 113/63 Blood Pressure [Left Arm] O2 Sat by Pulse 93 L 93 L 93 L Oximetry 07/09/23 00:20 Temperature Pulse Rate 112 H Pulse Rate [ Pulse Oximetery ] Respiratory 18 Rate Blood Pressure 108/69 Blood Pressure [Left Arm] O2 Sat by Pulse 93 L Oximetry Medical Decision Making - Lab Data Result diagrams: 07/08/23 13:04 07/08/23 13:04 <Shavon Carmona - Last Filed: 07/08/23 17:53> - Lab Data Result diagrams: 07/08/23 13:04 07/08/23 13:04 - EKG Data -: EKG Interpreted by Ne <Prasanna Lerner - Last Filed: 07/09/23 12:26> - Medical Decision Making Was pt. sent in by a medical professional or institution (, PA, CAR SUPERVISOR, urgent care, hospital, or retirement...) When possible be specific @ -No Did you speak to anyone other than the patient for history (EMS, parent, family, police, friend...)? What history was obtained from this source @ -Police officers assist with patient's past medical history as well as recent history of the Lifestream. Did you review nursing and triage notes (agree or disagree)? Why? @ -I reviewed and agree with nursing and triage notes Were old charts reviewed (outside hosp., previous admission, EMS record, old EKG, old radiological studies, urgent care reports/EKG's, retirement records)? Report findings @ -Old charts were reviewed Differential Diagnosis (chest pain, altered mental status, abdominal pain women, abdominal pain men, vaginal bleeding, weakness, fever, dyspnea, syncope, headache, dizziness, GI bleed, back pain, seizure, CVA, palpatations, mental health, musculoskeletal)? @ -Differential Mental Health Depression, anxiety, bipolar, psychosis, schizophrenia, borderline personality, situational depression, adjustment disorder, behavioral disorder, brain tumor, malingering, substance abuse, encephalopathy, medication reaction, dementia, hypothyroidism, degenerative neurologic disorder, lupus.... This is not meant to be all-inclusive list EKG interpreted by me (3pts min.). @ -As above X-rays interpreted by me (1pt min.). @ -Chest x-ray reveals no obvious acute cardiopulmonary process. CT interpreted by me (1pt min.). @ -Brain CT reveals no obvious acute intracranial process. U/S interpreted by me (1pt. min.). @ -None done What testing was considered but not performed or refused? (CT, X-rays, U/S, labs)? Why? @ -None What meds were considered but not given or refused? Why? @ -None Did you discuss the management of the patient with other professionals (professionals i.e. , PA, CAR SUPERVISOR, lab, RT, psych nurse, social media marketing analyst, electrical and radio aircraft mechanic, teacher, corporate banking officer, nurse case manager)? Give summary @ -EPS notified of the consult. Was smoking cessation discussed for >3mins.? @ -No Was critical care preformed (if so, how long)? @ -No Were there social determinants of health that impacted care today? How? (Homelessness, low income, unemployed, alcoholism, drug addiction, transportation, low edu. Level, literacy, decrease access to med. care, m[facility], rehab)? @ -No Was there de-escalation of care discussed even if they declined (Discuss DNR or withdrawal of care, Hospice)? DNR status @ -No What co-morbidities impacted this encounter? (DM, HTN, Smoking, COPD, CAD, Cancer, CVA, ARF, Chemo, Hep., AIDS, mental health diagnosis, sleep apnea, mor bid obesity)? @ -None Was patient admitted / discharged? Hospital course, mention meds given and ro lamar, prescriptions, significant lab abnormalities, going to OR and other pertinent info. @ -Based on the patient's presentation and physical exam, presents for psychiatric evaluation. No significant psychiatric history. Patient did have a brief episode of confusion we will obtain altered mental status labs as well. However currently he has no acute complaints and is not confused. His episode of confusion was involving the passwords of logging into a computer account. Vital signs are within acceptable limits. Patient's imaging including CT brain unremarkable. Laboratory studies reveal a UTI. Patient was started on antibiotics. Patient was in agreement this plan. He is currently alert and oriented x 4. Patient is still feeling mildly nauseous due to anxiety and had a few episodes of emesis. Patient was given antiemetics. At this time patient will be medically cleared for evaluation by psychiatry. Disposition pending psychiatric evaluation. EPS notified of the consult. Hilario blakely given a dose of IV Rocephin and a prescription for ciprofloxacin sent to his pharmacy. Patient eventually cleared by psychiatry however patient was admitted for UTI by Dr. Carmona as patient was still having some emesis as well as a little bit of confusion. Undiagnosed new problem with uncertain prognosis? @ -No Drug Therapy requiring intensive monitoring for toxicity (Heparin, Nitro, Insu shine, Cardizem)? @ -No Were any procedures done? @ -No Diagnosis/symptom? @ -UTI, encounter for psychiatric evaluation Acute, or Chronic, or Acute on Chronic? @ -Acute Uncomplicated (without systemic symptoms) or Complicated (systemic symptoms)? @ -Uncomplicated Side effects of treatment? @ -No Exacerbation, Progression, or Severe Exacerbation? @ -No Poses a threat to life or bodily function? How? (Chest pain, [place], [place], pneumonia, PE, COPD, DKA, ARF, appy, cholecystitis, CVA, Diverticulitis, Homicidal, Suicidal, threat to staff... and all critical care pts) @ -Potentially (Prasanna Lerner) - Lab Data Lab Results 07/08/23 07/08/23 07/08/23 Range/Units 13:04 13:04 13:04 WBC 7.2 (3.8-10.6) k/uL RBC 4.80 (4.30-5.90) m/uL Hgb 15.5 (13.0-17.5) gm/dL Hct 44.6 (39.0-53.0) % MCV 93.0 (80.0-100.0) fL MCH 32.3 (25.0-35.0) pg MCHC 34.7 (31.0-37.0) g/dL RDW 12.5 (11.5-15.5) % Plt Count 117 L (150-450) k/uL MPV 7.6 Neutrophils % 88 % Lymphocytes % 5 % Monocytes % 5 % Eosinophils % 1 % Basophils % 1 % Neutrophils # 6.3 (1.3-7.7) k/uL Lymphocytes # 0.4 L (1.0-4.8) k/uL Monocytes # 0.3 (0-1.0) k/uL Eosinophils # 0.1 (0-0.7) k/uL Basophils # 0.0 (0-0.2) k/uL PT 11.4 (10.0-12.5) sec INR 1.1 (<1.2) APTT 28.2 (22.0-30.0) sec Sodium (137-145) mmol/L Potassium (3.5-5.1) mmol/L Chloride (98-107) mmol/L Carbon Dioxide (22-30) mmol/L Anion Gap mmol/L BUN (9-20) mg/dL Creatinine (0.66-1.25) mg/dL Est GFR (CKD-EPI)AfAm (>60 ml/min/1.73 sqM) Est GFR (CKD-EPI)NonAf (>60 ml/min/1.73 sqM) Glucose (74-99) mg/dL POC Glucose (mg/dL) (70-110) mg/dL POC Glu Trip Follower ID Calcium (8.4-10.2) mg/dL Total Bilirubin (0.2-1.3) mg/dL AST (17-59) U/L ALT (4-49) U/L Alkaline Phosphatase (38-126) U/L Ammonia (<30) umol/L Total Protein (6.3-8.2) g/dL Albumin (3.5-5.0) g/dL Urine Color Light Yellow Urine Appearance Cloudy (Clear) Urine pH 7.0 (5.0-8.0) Ur Specific [place] 1.016 (1.001-1.035) Urine Protein 1+ H (Negative) Urine Glucose (UA) Negative (Negative) Urine Ketones Negative (Negative) Urine Blood Small H (Negative) Urine Nitrite Negative (Negative) Urine Bilirubin Negative (Negative) Urine Urobilinogen <2.0 (<2.0) mg/dL Ur Leukocyte Esterase Large H (Negative) Urine RBC 6 H (0-5) /hpf Urine WBC >182 H (0-5) /hpf Urine WBC Clumps Occasional H (None) /hpf Ur Squamous Epith Cells <1 (0-4) /hpf Urine Bacteria Many H (None) /hpf Urine Mucus Rare H (None) /hpf Salicylates mg/dL Urine Opiates Screen Not Detected (NotDetected) Ur Oxycodone Screen Not Detected (NotDetected) Urine Methadone Screen Not Detected (NotDetected) Acetaminophen ug/mL Ur Barbiturates Screen Not Detected (NotDetected) U Tricyclic Antidepress Not Detected (NotDetected) Ur Phencyclidine Scrn Not Detected (NotDetected) Ur Amphetamines Screen Not Detected (NotDetected) U Methamphetamines Scrn Not Detected (NotDetected) U Benzodiazepines Scrn Not Detected (NotDetected) Urine Cocaine Screen Not Detected (NotDetected) U Marijuana (THC) Screen Not Detected (NotDetected) Serum Alcohol mg/dL 07/08/23 07/08/23 07/08/23 Range/Units 13:04 13:04 14:59 WBC (3.8-10.6) k/uL RBC (4.30-5.90) m/uL Hgb (13.0-17.5) gm/dL Hct (39.0-53.0) % MCV (80.0-100.0) fL MCH (25.0-35.0) pg MCHC (31.0-37.0) g/dL RDW (11.5-15.5) % Plt Count (150-450) k/uL MPV Neutrophils % % Lymphocytes % % Monocytes % % Eosinophils % % Basophils % % Neutrophils # (1.3-7.7) k/uL Lymphocytes # (1.0-4.8) k/uL Monocytes # (0-1.0) k/uL Eosinophils # (0-0.7) k/uL Basophils # (0-0.2) k/uL PT (10.0-12.5) sec INR (<1.2) APTT (22.0-30.0) sec Sodium 138 (137-145) mmol/L Potassium 4.9 (3.5-5.1) mmol/L Chloride 103 (98-107) mmol/L Carbon Dioxide 24 (22-30) mmol/L Anion Gap 11 mmol/L BUN 15 (9-20) mg/dL Creatinine 1.07 (0.66-1.25) mg/dL Est GFR (CKD-EPI)AfAm 81 (>60 ml/min/1.73 sqM) Est GFR (CKD-EPI)NonAf 70 (>60 ml/min/1.73 sqM) Glucose 119 H (74-99) mg/dL POC Glucose (mg/dL) 154 H (70-110) mg/dL POC Glu Trip Follower ID Karmen Howard Calcium 9.0 (8.4-10.2) mg/dL Total Bilirubin 1.4 H (0.2-1.3) mg/dL AST 25 (17-59) U/L ALT 12 (4-49) U/L Alkaline Phosphatase 79 (38-126) U/L Ammonia <9 (<30) umol/L Total Protein 7.2 (6.3-8.2) g/dL Albumin 4.5 (3.5-5.0) g/dL Urine Color Urine Appearance (Clear) Urine pH (5.0-8.0) Ur Specific [place] (1.001-1.035) Urine Protein (Negative) Urine Glucose (UA) (Negative) Urine Ketones (Negative) Urine Blood (Negative) Urine Nitrite (Negative) Urine Bilirubin (Negative) Urine Urobilinogen (<2.0) mg/dL Ur Leukocyte Esterase (Negative) Urine RBC (0-5) /hpf Urine WBC (0-5) /hpf Urine WBC Clumps (None) /hpf Ur Squamous Epith Cells (0-4) /hpf Urine Bacteria (None) /hpf Urine Mucus (None) /hpf Salicylates <1.0 mg/dL Urine Opiates Screen (NotDetected) Ur Oxycodone Screen (NotDetected) Urine Methadone Screen (NotDetected) Acetaminophen <10.0 ug/mL Ur Barbiturates Screen (NotDetected) U Tricyclic Antidepress (NotDetected) Ur Phencyclidine Scrn (NotDetected) Ur Amphetamines Screen (NotDetected) U Methamphetamines Scrn (NotDetected) U Benzodiazepines Scrn (NotDetected) Urine Cocaine Screen (NotDetected) U Marijuana (THC) Screen (NotDetected) Serum Alcohol <10 mg/dL - EKG Data EKG Comments: 12-lead Electrocardiogram Interpretation Note EKG was reviewed and interpreted by myself. 12-lead ECG performed at 1224 is interpreted by me as revealing normal sinus rhythm at a rate of 88 beats per minute. [place] is normal. [place] interval is 234 ms, QRS durations 104 ms, QTc is 382 ms. Patient has first-degree AV block.. There were no ST or T wave abnormalities to suggest myocardial ischemia or injury. R wave progression across the precordium was satisfactory. By my interpretation this EKG is non- diagnostic for acute ischemia. (Prasanna Lerner) Disposition Is patient prescribed a controlled substance at d/c from ED?: No <Shavon Carmona - Last Filed: 07/08/23 17:53> Is patient prescribed a controlled substance at d/c from ED?: No <Prasanna Lerner - Last Filed: 07/09/23 12:26> Clinical Impression: UTI (urinary tract infection), Encounter for psychiatric assessment Disposition: ADMITTED IP TO THIS HOSP Condition: Stable
[2023-07-08 15:01] LABS: Glucose,Whole Blood 154 mg/dL (70-110)
--- NOTE | 2023-07-08 15:04 | XR ---
EXAMINATION TYPE: XR chest 1V portable DATE OF EXAM: 07/08/2023 Comparison: None Clinical History: 72-year-old male confusion, ams Findings: Heart mildly enlarged. Low lung volumes and crowded vascular markings. Hazy densities relating to ove rlying soft tissue. No consolidation or pleural effusion seen. Impression: Limited by portable technique, large body habitus, and hypoventilatory changes. Heart mildly enlarged . Otherwise, no definite acute process seen.
[2023-07-08] MEDS: cefTRIAXone IN SWFI 1,000 MG/10 ML SYRINGE IVP STA (16:23)
[2023-07-08] MEDS: METOCLOPRAMIDE 5 MG/ML 2 ML VIAL IVP STA (16:23)
[2023-07-08] MEDS ORDERED: CIPROFLOXACIN HCL 500 MG TAB PO SCH (21:00)
[2023-07-08] MEDS ORDERED: NALOXONE 0.4 MG/ML 1 ML VIAL IV PRN (21:07)
[2023-07-08] MEDS: ACETAMINOPHEN TAB 325 MG TAB PO STA (22:27)
[2023-07-08] MEDS: SODIUM CHLORIDE 0.9% 1,000 ML IV SCH (22:28)
[2023-07-08] MEDS ORDERED: SODIUM CHLORIDE 0.9% 1,000 ML IV SCH (23:45)
[2023-07-09] MEDS: SODIUM CHLORIDE 0.9% 1,000 ML IV ONE (00:33)
[2023-07-09] MEDS: KETOROLAC 15 MG/ML 1 ML VIAL IVP STA (00:33)
[2023-07-09] MEDS ORDERED: ZINC OXIDE PASTE (Z-GUARD) 1 APPLIC TOPICAL PRN (08:19)
--- NOTE | 2023-07-09 17:11 | P.HPIM ---
History of Present Illness H&P Date: 07/09/23 This is a 72 year old patient with medical history of diabetes mellitus type 2. Patient follows with Dr. Perez in the office. He came in to the hospital brought in by EMS with concern for suicidal ideation. Apparently patient was on youtube which he states he streams youtube twice a day with his friends he had a fake gun and was pointing it at his head and making suicidal statements. Police were called for a well check and he was brought in for psychiatric evaluation. Per patient he states it was a joke; and that he has been confused and agitated since Friday into Friday that he could not remember his YouTube log in. Patient upon presentation to the ER is alert x 3 he has no complaints acute complaints he is not having any shortness of breath no chest discomfort. He was seen in evaluation by the EPS nurse who discussed with the psychiatrist and felt that he was not suicidal and did not meet any inpatient criteria for further psychiatric evaluation. Patient does endorse a history which she states has been ongoing for the last 1 to 2 years of urinary frequency and nocturia as well as burning with urination. His urinalysis was abnormal showing 1+ protein, small blood, large leukocyte esterase, occasional WBC clumps, greater than 182 WBCs and many bacteria. A urine culture is currently pending at this time as well as blood cultures. Patient was also febrile with a Tmax of 101.1. His viral panel was negative for COVID influenza or RSV. Started on IV ceftriaxone and admitted to the hospital under medicine. REVIEW OF SYSTEMS: CONSTITUTIONAL: No fever, no malaise, no fatigue. HEENT: No recent visual problems or hearing problems. Denied any sore throat. CARDIOVASCULAR: No chest pain, orthopnea, PND, no palpitations, no syncope. PULMONARY: No shortness of breath, no cough, no hemoptysis. GASTROINTESTINAL: No diarrhea, no nausea, no vomiting, no abdominal pain. NEUROLOGICAL: No headaches, no weakness, no numbness. HEMATOLOGICAL: Denies any bleeding or petechiae. GENITOURINARY: Denies any burning micturition, frequency, or urgency. MUSCULOSKELETAL/RHEUMATOLOGICAL: Denies any joint pain, swelling, or any muscle pain. ENDOCRINE: Denies any polyuria or polydipsia. The rest of the 14-point review of systems is negative. PHYSICAL EXAMINATION: GENERAL: The patient is alert and oriented x3, not in any acute distress. Well developed, well nourished. HEENT: Pupils are round and equally reacting to light. EOMI. No scleral icterus. No conjunctival pallor. Normocephalic, atraumatic. No pharyngeal erythema. No thyromegaly. CARDIOVASCULAR: S1 and S2 present. No murmurs, rubs, or gallops. PULMONARY: Chest is clear to auscultation, no wheezing or crackles. ABDOMEN: Soft, nontender, nondistended, normoactive bowel sounds. No palpable organomegaly. MUSCULOSKELETAL: No joint swelling or deformity. EXTREMITIES: No cyanosis, clubbing, or pedal edema. NEUROLOGICAL: Gross neurological examination did not reveal any focal deficits. SKIN: No rashes. Assessment and plan Altered mental status secondary to toxic encephalopathy from infection patient viraj chicas has an acute urinary tract infection present on admission Acute urinary tract infection with sepsis present on admission patient has been febrile urine culture and blood cultures are currently pending patient has been started on IV ceftriaxone History of diabetes mellitus type 2 per patient is not on medications for this and has been diet controlled 1 episode of hypertension uncontrolled patient was given fluid bolus and started on normal saline at 130 MLS per hour this was discontinued and his blood pressure is now improved back down to 120s to 130s over 70s. Hypertension not on any home medication Hyperlipidemia not on any medications Fever and tachycardia due to sepsis improved Diabetes mellitus type 2 diet controlled Reports of prostate disorder in the medical history per patient he denies any history and states he does not see a urologist. Intertrigo Morbid obesity with a BMI of 50.2 GI prophylaxis DVT prophylaxis Full Code Plan Patient will be continued on IV antibiotics pending urine culture and blood culture. Patient to repeat BMP in the AM and check and A1C Rule out urinary retention check a bladder scan Monitor blood pressure Continue supportive care with tylenol for fever Continue nystatin abdominal folds. The impression and plan of care has been dictated by Brenda Mendoza, Nurse Practitioner as directed. Dr. Samantha MD I have performed a history and physical examination and medical decision making of this patient, discussed the same with the dictator, and agree with the dictators assessment and plan as written, documented as a scribe. Based on total visit time, I have performed more than 50% of this visit. Past Medical History Past Medical History: Diabetes Mellitus, Hyperlipidemia, Hypertension, Osteo arthritis (OA), Prostate Disorder, Sleep Apnea/CPAP/BIPAP Additional Past Medical History / Comment(s): leg cramps History of Any Multi-Drug Resistant Organisms: None Reported Past Surgical History: Cholecystectomy Additional Past Surgical History / Comment(s): lap band 80s, sleep apnea surgery UPPP 90s Past Anesthesia/Blood Transfusion Reactions: No Reported Reaction, Postoperative Nausea & Vomiting (PONV) Past Psychological History: No Psychological Hx Reported Smoking Status: Never smoker Past Alcohol Use History: None Reported Past Drug Use History: None Reported - Past Family History Father Additional Family Medical History / Comment(s): Father dies at age 89 with CVA. Mother Family Medical History: Dementia Additional Family Medical History / Comment(s): Mother at age 86 from Alzheimer dementia. Maternal grandfather had gallbladder problems. Brother(s) Family Medical History: Dementia Additional Family Medical History / Comment(s): Patient has one brother with no major medical problems. Patient does not have any sisters. Patient does not have any children. Medications and Allergies Home Medications Medication Instructions Recorded Confirmed Type Ciprofloxacin HCl [Cipro] 500 mg PO Q12HR 7 Days #14 tab 07/08/23 Rx Allergies Allergy/AdvReac Type Severity Reaction Status Date / Time hydromorphone [From Dilaudid] Allergy Nausea & Verified 07/08/23 22:54 Vomiting Physical Exam Vitals: Vital Signs Temp Pulse Pulse Resp BP BP Pulse Ox 07/09/23 13:00 98.5 F 84 18 136/74 96 07/09/23 08:05 97.6 F 81 17 126/77 92 L 07/09/23 08:00 81 17 07/09/23 02:47 107 H 18 07/09/23 02:00 97.5 F L 107 H 18 170/98 93 L 07/09/23 00:20 112 H 18 108/69 93 L 07/08/23 23:56 112 H 18 113/63 93 L 07/08/23 23:40 98.7 F 114 H 18 111/59 93 L 07/08/23 22:00 101.0 F H 115 H 18 171/109 93 L 07/08/23 21:00 99.9 F H 115 H 19 185/114 95 07/08/23 18:45 99.7 F H 120 H 18 210/101 95 Intake and Output 03/13/24 03/13/24 03/13/24 06:59 14:59 22:59 Output Total 200 Balance -200 Output: Urine 200 Other: Voiding Method External Catheter External Catheter Weight 163.293 kg Results CBC & Chem 7: 07/08/23 13:04 07/08/23 13:04 Thrombosis Risk Factor Assmnt - Choose All That Apply Any of the Below Risk Factors Present?: Yes Each Factor Represents 1 point: Medical pt on bed rest, Obesity (BMI >25) Other Risk Factors: Yes Each Risk Factor Represents 2 Points: Age 61-74 years, Patient confined to bed Other congenital or acquired thrombophilia - If yes, enter type in comment: Yes Thrombosis Risk Factor Assessment Total Risk Factor Score: 6 Thrombosis Risk Factor Assessment Level: High Risk Assessment and Plan Time with Patient: Less than 30
[2023-07-09] MEDS: NYSTATIN 100,000 UNIT/GM POWD 15 GM TOPICAL SCH (21:30)
[2023-07-10] MEDS: ENOXAPARIN 40 MG/0.4 ML SYRINGE SQ SCH (08:28)
[2023-07-10] MEDS: PANTOPRAZOLE 40 MG TABLET PO SCH (08:28)
[2023-07-10] MEDS: ACETAMINOPHEN TAB 325 MG TAB PO PRN (08:36)
[2023-07-10 13:29] VITALS: RESP 18
--- NOTE | 2023-07-10 22:15 | P.PN ---
Subjective Progress Note Date: 07/10/23 This is a 72 year old patient with medical history of diabetes mellitus type 2. Patient follows with Dr. Perez in the office. He came in to the hospital brought in by EMS with concern for suicidal ideation. Apparently patient was on youtube which he states he streams youtube twice a day with his friends he had a fake gun and was pointing it at his head and making suicidal statements. Police were called for a well check and he was brought in for psychiatric evaluation. Per patient he states it was a joke; and that he has been confused and agitated since Friday into Friday that he could not remember his YouTube log in. Patient upon presentation to the ER is alert x 3 he has no complaints acute complaints he is not having any shortness of breath no chest discomfort. He was seen in evaluation by the EPS nurse who discussed with the psychiatrist and felt that he was not suicidal and did not meet any inpatient criteria for further psychiatric evaluation. Patient does endorse a history which she states has been ongoing for the last 1 to 2 years of urinary frequency and nocturia as well as burning with urination. His urinalysis was abnormal showing 1+ protein, small blood, large leukocyte esterase, occasional WBC clumps, greater than 182 WBCs and many bacteria. A urine culture is currently pending at this time as well as blood cultures. Patient was also febrile with a Tmax of 101.1. His viral panel was negative for COVID influenza or RSV. Started on IV ceftriaxone and admitted to the hospital under medicine. 07/10/2023 Patient evaluated today sitting up at the bedside. He did not leave AMA yesterday. He is not confused today he is alert x 3. He reports that no longer feels a burning sensation with urination. There is concern for possible prostatitis. ID was consulted on this patient and urine culture has been taken. Blood culture negative so far. Patient remains on IV ceftriaxone. Hemodynamically he is stable. PHYSICAL EXAMINATION: GENERAL: The patient is alert and oriented x3, not in any acute distress. Well developed, well nourished. HEENT: Pupils are round and equally reacting to light. EOMI. No scleral icterus. No conjunctival pallor. Normocephalic, atraumatic. No pharyngeal erythema. No thyromegaly. CARDIOVASCULAR: S1 and S2 present. No murmurs, rubs, or gallops. PULMONARY: Chest is clear to auscultation, no wheezing or crackles. ABDOMEN: Soft, nontender, nondistended, normoactive bowel sounds. No palpable organomegaly. MUSCULOSKELETAL: No joint swelling or deformity. EXTREMITIES: No cyanosis, clubbing, or pedal edema. NEUROLOGICAL: Gross neurological examination did not reveal any focal deficits. SKIN: No rashes. Assessment and plan Altered mental status secondary to toxic encephalopathy from infection patient likely has an acute urinary tract infection present on admission Acute urinary tract infection with sepsis present on admission patient has been febrile urine culture and blood cultures are currently pending patient has been started on IV ceftriaxone History of diabetes mellitus type 2 per patient is not on medications for this and has been diet controlled 1 episode of hypertension uncontrolled patient was given fluid bolus and started on normal saline at 130 MLS per hour this was discontinued and his blood pressure is now improved back down to 120s to 130s over 70s. Hypertension not on any home medication Hyperlipidemia not on any medications Fever and tachycardia due to sepsis improved Diabetes mellitus type 2 diet controlled Reports of prostate disorder in the medical history per patient he denies any history and states he does not see a urologist. Intertrigo Morbid obesity with a BMI of 50.2 GI prophylaxis DVT prophylaxis Full Code Plan Patient will be continued on IV antibiotics pending urine culture and blood culture. check and A1C Rule out urinary retention check a bladder scan Monitor blood pressure Continue supportive care with tylenol for fever Continue nystatin abdominal folds. ID consultation . The impression and plan of care has been dictated by Brenda Mendoza, Nurse Practitioner as directed. Dr. Samantha MD I have performed a history and physical examination and medical decision making of this patient, discussed the same with the dictator, and agree with the dictators assessment and plan as written, documented as a scribe. Based on total visit time, I have performed more than 50% of this visit. Objective - Vital Signs Vital signs: Vital Signs Temp 97.5 F L 07/10/23 12:59 Pulse 74 07/10/23 12:59 Resp 18 07/10/23 12:59 BP 131/66 07/10/23 12:59 Pulse Ox 95 07/10/23 12:59 FiO2 21 07/10/23 08:18 Intake & Output 07/09/23 07/10/23 07/10/23 18:59 06:59 18:59 Intake Total 360 Output Total 675 600 250 Balance -315 -600 -250 Intake: Oral 360 Output: Urine 675 600 250 Other: Voiding Method External Catheter External Catheter External Catheter # Voids 1 # Bowel Movements 1 1 - Labs CBC & Chem 7: 07/08/23 13:04 07/08/23 13:04 Labs: Microbiology - Last 24 Hours (Table) 07/09/23 00:15 Blood Culture - Preliminary Blood 07/08/23 23:59 Blood Culture - Preliminary Blood Assessment and Plan Time with Patient: Less than 30
--- NOTE | 2023-07-10 22:35 | P.CONS ---
History of Present Illness - Reason for Consult Consult date: 07/10/23 UTI Requesting physician: Brenda Mendoza - Chief Complaint Weakness confusion and burning urine x 1 day - History of Present Illness Patient is a 72-year-old male with a past medical history significant for Diabetes Mellitus, Hyperlipidemia, Hypertension, Osteoarthritis (OA), Prostate Disorder, Sleep Apnea/CPAP/BIPAP, patient presenting to the ER complaining of confusion and feeling weak symptom has been getting worse for a day before the patient was presented to the hospital patient denies having any headache or URI symptoms no chest pain or shortness with occasional cough no nausea no vomiting no abdominal pain patient complaining of pain at the end of urination but no suprapubic or flank pain and no diarrhea patient on presentation to the hospital did have a fever of 100 F subsequently he spiked a fever of 101 degrees Fahrenheit patient was tachycardic but not hypotensive or hypoxic he did have a white count of 7.2 creatinine was normal liver isms are normal urine has been positive urine drug screen was negative influenza RSV COVID testing negative blood cultures obtained which are currently pending patient did have a chest x-ray no definite acute process seen patient was started on ceftriaxone infectious disease was consulted today for further management of antibiotic therapy Review of Systems Positive point and negatives has been mentioned in the HPI, complete review of systems was performed and all other systems are negative Past Medical History Past Medical History: Diabetes Mellitus, Hyperlipidemia, Hypertension, Osteoarthritis (OA), Prostate Disorder, Sleep Apnea/CPAP/BIPAP Additional Past Medical History / Comment(s): leg cramps History of Any Multi-Drug Resistant Organisms: None Reported Past Surgical History: Cholecystectomy Additional Past Surgical History / Comment(s): lap band 80s, sleep apnea surgery UPPP 90s Past Anesthesia/Blood Transfusion Reactions: No Reported Reaction, Postoperative Nausea & Vomiting (PONV) Past Psychological History: No Psychological Hx Reported Smoking Status: Never smoker Past Alcohol Use History: None Reported Past Drug Use History: None Reported - Past Family History Father Additional Family Medical History / Comment(s): Father dies at age 89 with CVA. Mother Family Medical History: Dementia Additional Family Medical History / Comment(s): Mother at age 86 from Al zheimer dementia. Maternal grandfather had gallbladder problems. Brother(s) Family Medical History: Dementia Additional Family Medical History / Comment(s): Patient has one brother with no major medical problems. Patient does not have any sisters. Patient does not have any children. Medications and Allergies Home Medications Medication Instructions Recorded Confirmed Type Ciprofloxacin HCl [Cipro] 500 mg PO Q12HR 7 Days #14 tab 07/08/23 Rx Allergies Allergy/AdvReac Type Severity Reaction Status Date / Time hydromorphone [From Dilaudid] Allergy Nausea & Verified 07/08/23 22:54 Vomiting Physical Exam Vitals: Vital Signs Temp Pulse Resp BP BP Pulse Ox FiO2 07/10/23 08:18 100 21 07/10/23 08:15 94 L 21 07/10/23 07:29 98.7 F 70 20 152/69 94 L 07/10/23 01:46 98.5 F 74 18 143/72 92 L 07/09/23 20:00 18 07/09/23 18:59 98.3 F 87 18 123/70 94 L 07/09/23 14:40 84 18 07/09/23 13:00 98.5 F 84 18 136/74 96 Intake and Output 07/09/23 07/10/23 07/10/23 22:59 06:59 14:59 Output Total 675 600 250 Balance -675 -600 -250 Output: Urine 675 600 250 Other: Voiding Method External Catheter External Catheter # Voids 1 # Bowel Movements 1 1 GENERAL DESCRIPTION: Elderly male up in the chair, no distress. No tachypnea or accessory muscle of respiration use. HEENT: Shows Pallor , no scleral icterus. Oral mucous membrane is dry. No pharyngeal erythema or thrush NECK: Trachea central, no thyromegaly. LUNGS: Unlabored breathing. Clear to auscultation anteriorly. No wheeze or crackle. HEART: S1, S2, regular rate and rhythm. No loud murmur ABDOMEN: Soft, no tenderness , guarding or rigidity, no organomegaly EXTREMITIES: No edema of feet. SKIN: No rash, no masses palpable. NEUROLOGICAL: The patient is awake, alert, oriented x3, mood and affect normal. Results CBC & Chem 7: 07/08/23 13:04 07/08/23 13:04 Assessment and Plan (1) Sepsis Current Visit: Yes Status: Acute Code(s): A41.9 - SEPSIS, UNSPECIFIED ORGANISM SNOMED Code(s): 39973430 (2) UTI (urinary tract infection) Current Visit: Yes Status: Acute Code(s): N39.0 - URINARY TRACT INFECTION, SITE NOT SPECIFIED SNOMED Code(s): 91862478 Plan: 1patient presented hospital with sepsis in this patient who did have fever tachycardia did have a urinary symptoms positive UA likely etiology of his sepsis currently no other obvious focus of infection and likely from enteric gram-negative pathogen. 2check ultrasound the kidney bladder area to measure evidence of any structural abnormality 3-Rocephin 1 g daily to continue while waiting for the culture to finalize We will follow on clinical condition and cultures to further adjust medication if needed Thank you for this consultation we will follow the patient along with you Dictation was produced using [employer] - Smart[employer] RFID dictation software. please excuse any grammatical, word or spelling errors. Time with Patient: Greater than 30
[2023-07-11 08:34] VITALS: BP 121/72; PULSE 60; TEMP 97.6
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
--- NOTE | 2023-07-13 13:30 | P.DS ---
Providers Date of admission: 07/08/23 21:15 Expected date of discharge: 07/11/23 Attending physician: Deven Clark Consults: 07/10/23 10:41 Consult Physician Routine Consulting Provider: Isha Jack Consult Reason/Comments: UTI Do you want consulting provider notified?: Yes Primary care physician: Gilbert Perez [facility] Course: Final diagnosis Altered mental status secondary to toxic encephalopathy from infection patient likely has an acute urinary tract infection present on admission Acute urinary tract infection with sepsis present on admission. Urine cultures negative showing normal norberto History of diabetes mellitus type 2 per patient is not on medications for this and has been diet controlled 1 episode of hypertension uncontrolled patient was given fluid bolus and started on normal saline at 130 MLS per hour this was discontinued and his blood pressure is now improved back down to 120s to 130s over 70s. Hypertension not on any home medication Hyperlipidemia not on any medications Fever and tachycardia due to sepsis improved Diabetes mellitus type 2 diet controlled Reports of prostate disorder in the medical history per patient he denies any history and states he does not see a urologist. Intertrigo Morbid obesity with a BMI of 50.2 GI prophylaxis DVT prophylaxis Full Code Discharge disposition Patient is being discharged in a stable condition with guarded prognosis to home. Patient will follow-up with Dr. Perez in the outpatient setting upon discharge. Patient is to continue on oral Ceftin twice daily for 1 week per ID recommendations. Patient follow-up with urology outpatient as scheduled. Total time taken is greater than 35 minutes. Hospital course This is a 72 [id number] male who was recently admitted for altered mental status likely secondary to UTI with sepsis, present on admission. Patient mentation has improved maintained on antibiotics with infectious disease following. Patient's urine cultures finalized showing normal norberto and patient will continue on oral Ceftin 500 mg twice daily for the next 1 week per ID recommendations. Patient has been cleared by consultations. Patient also with some generalized weakness evaluated by physical therapy recommending home with home care. Please refer to other consultation notes for further HPI. currently no reports of chest pain, shortness of breath, or palpitations. Patient is afebrile. No reports of nausea or vomiting and patient is tolerating diet. Patient will be Discharged home today. High risk for readmission given patient's noncompliance and significant comorbidities. Physical exam: Gen: This is a 72-year-old male who is awake, alert and oriented x 3, well- developed and well-nourished, morbidly obese HEENT: Head is atraumatic, normocephalic. Pupils equal, round. Sclerae is anicteric. NECK: Supple. No JVD. No lymphadenopathy. No thyromegaly. LUNGS: Clear to auscultation. No wheezes or rhonchi. No intercostal retractions. HEART: Regular rate and rhythm. No murmur. ABDOMEN: Soft. Obese bowel sounds are present. No masses. No tenderness. EXTREMITIES: No pedal edema. No calf tenderness. NEUROLOGICAL: Patient is awake, alert and oriented x3. Cranial nerves 2 through 12 are grossly intact. Diffusely weak. Steady gait noted with walker on exam Please refer to medication reconciliation sheet for a list of medications. The impression and plan of care has been dictated by Shavon Bruce, Nurse Practitioner as directed. Dr. Samantha MD I have performed a history and examination and MDM of this patient, discussed t he same with the dictator, and agree with the dictator's assessment and plan as written ,documented as a scribe. Based on total visit time, I have performed more than 50% of the visit. Patient Condition at Discharge: Stable Plan - Discharge Summary New Discharge Prescriptions: New cefUROXime axetiL [Ceftin] 500 mg PO BID 7 Days #14 tab Discharge Medication List cefUROXime axetiL [Ceftin] 500 mg PO BID 7 Days #14 tab 07/11/23 [Rx] Follow up Appointment(s)/Referral(s): Gilbert Perez [Primary Care Provider] - 1-2 days (Medical Doctor Please call the office to schedule a follow up appointment - office was closed at time of discharge) Patient Instructions/Handouts: Cefuroxime (By mouth), Urinary Tract Infection in Men (DC) Discharge Disposition: HOME SELF-CARE
== END 2023-07-11 13:01 | disposition home or self-care (01) | DRG 871 ==
LOC: EC 11:38 → 6NMEDSUR 21:15 → OBSVTOIN 21:15 → 5NMEDONC 22:20
PROVIDERS: ADMIT Hospitalist; ATTEND Hospitalist
DX: A41.9 Sepsis, unspecified organism (principal); G92.8 Other toxic encephalopathy; Z68.43 Body mass index [BMI] 50.0-59.9, adult; N39.0 Urinary tract infection, site not specified; E66.01 Morbid (severe) obesity due to excess calories; Z91.199 Patient's noncompliance with other medical treatment and regimen due to unspecified reason; L30.4 Erythema intertrigo; E11.9 Type 2 diabetes mellitus without complications; Z88.5 Allergy status to narcotic agent; E78.5 Hyperlipidemia, unspecified; M19.90 Unspecified osteoarthritis, unspecified site; I10 Essential (primary) hypertension; Z90.49 Acquired absence of other specified parts of digestive tract
CPT/HCPCS: 36415; 70450; 71045; 80053; 80143; 80179; 80306; 80320; 81001; 82140; 83036; 85025; 85610; 85730; 87040; 87086; 87636; 93005; 94760; 96361; 96374; 96375; 99285